=== PATIENT | male | born 1945 | race Caucasian/White ===

== ENCOUNTER 2018-07-19 18:27 | Inpatient (IN) | payer MEDICARE, SELFPAY ==
[~2018-07-19] VITALS: Ht 182.9 cm; Wt 120.4 kg
--- NOTE | 2018-07-19 18:52 | PHYS DOC ---
Past Medical History Smoking: Cigarettes Adult General Chief Complaint Chief Complaint: RAPID HEART RATE HPI HPI Patient is a 72 year old male who presents to do due to chief complaint of fast heart rate. Patient states that he felt his heart rate increased since this morning. Patient states that last month he was in [facility] for COPD exacerbation and was told that he was having atrial fibrillation. He states that his heart rate spontaneously lumbricus normal sinus rhythm answers discharged home. Patient states that he moved from [place] last December and does not have a local PCP. Patient is admitted to being an active smoker. Patient states that he takes metoprolol in the semiprone and aspirin. He does not take any anticoagulation. Currently patient denies fever, chills, nausea, vomiting, diarrhea, dysuria, shyness of breath. Patient does complain of mild chest pain. Review of Systems Review of Systems Constitutional: Denies fever or chills [] Eyes: Denies change in visual acuity, redness, or eye pain [] HENT: Denies nasal congestion or sore throat [] Respiratory: Denies cough or shortness of breath [] Cardiovascular: Patient complains of fast heart rate GI: Denies abdominal pain, nausea, vomiting, bloody stools or diarrhea [] : Denies dysuria or hematuria [] Musculoskeletal: Denies back pain or joint pain [] Integument: Denies rash or skin lesions [] Neurologic: Denies headache, focal weakness or sensory changes [] Endocrine: Denies polyuria or polydipsia [] All other systems were reviewed and found to be within normal limits, except as documented in this note. Current Medications Current Medications Current Medications Medications (Trade) Dose Ordered Sig/Lauren Start Time Stop Time Status Last Admin Dose Admin Diltiazem HCl (Cardizem Iv Push) 10 mg 1X ONCE 07/19/18 19:00 07/19/18 19:03 DC 07/19/18 19:10 10 MG Sodium Chloride 1,000 ml @ 1,000 mls/hr 1X ONCE 07/19/18 19:00 07/19/18 19:59 DC 07/19/18 19:04 1,000 MLS/HR Allergies Allergies Physical Exam Physical Exam Constitutional: Well developed, well nourished, no acute distress, non-toxic appearance. HENT: Normocephalic, atraumatic, normocaphalic Eyes: PERRL, EOMI Neck: Normal range of motion, no tenderness, supple Cardiovascular: Irregularly irregular rhythm consistent with atrial fibrillation with RVR Resp: Bilateral breath sounds clear to auscultation Abdomen: Soft, no tenderness, no distension Skin: Warm, dry, no erythema, no rash. Back: No tenderness, no CVA tenderness. Extremities: No tenderness, ROM intact, no edema. Neurologic: Alert and oriented X 3, normal motor function, normal sensory function, no focal deficits noted. Psychologic: Affect normal, judgement normal, mood normal. Current Patient Data Vital Signs Vital Signs Date Time Temp Pulse Resp B/P (MAP) Pulse Ox O2 Delivery O2 Flow Rate FiO2 07/19/18 20:08 118 22 101/54 (70) 93 Room Air 07/19/18 18:27 97.8 97.8 Lab Values Laboratory Tests Test 07/19/18 18:43 White Blood Count 9.0 x10^3/uL (4.0-11.0) Red Blood Count 4.55 x10^6/uL (4.30-5.70) Hemoglobin 14.0 g/dL (13.0-17.5) Hematocrit 41.5 % (39.0-53.0) Mean Corpuscular Volume 91 fL (79-100) Mean Corpuscular Hemoglobin 31 pg (25-35) Mean Corpuscular Hemoglobin Concent 34 g/dL (31-37) Red Cell Distribution Width 14.3 % (11.5-14.5) Platelet Count 258 x10^3/uL (140-400) Neutrophils (%) (Auto) 74 % (31-73) H Lymphocytes (%) (Auto) 14 % (24-48) L Monocytes (%) (Auto) 8 % (0-9) Eosinophils (%) (Auto) 3 % (0-3) Basophils (%) (Auto) 1 % (0-3) Neutrophils # (Auto) 6.7 x10^3uL (1.8-7.7) Lymphocytes # (Auto) 1.2 x10^3/uL (1.0-4.8) Monocytes # (Auto) 0.7 x10^3/uL (0.0-1.1) Eosinophils # (Auto) 0.3 x10^3/uL (0.0-0.7) Basophils # (Auto) 0.1 x10^3/uL (0.0-0.2) Prothrombin Time 13.6 SEC (11.7-14.0) Prothrombin Time INR 1.1 (0.8-1.1) Sodium Level 137 mmol/L (136-145) Potassium Level 4.3 mmol/L (3.5-5.1) Chloride Level 102 mmol/L (98-107) Carbon Dioxide Level 26 mmol/L (21-32) Anion Gap 9 (6-14) Blood Urea Nitrogen 14 mg/dL (8-26) Creatinine 1.4 mg/dL (0.7-1.3) H Estimated GFR (Cockcroft-Gault) 49.5 BUN/Creatinine Ratio 10 (6-20) Glucose Level 115 mg/dL (70-99) H Calcium Level 9.4 mg/dL (8.5-10.1) Total Bilirubin 0.7 mg/dL (0.2-1.0) Aspartate Amino Transferase (AST) 14 U/L (15-37) L Alanine Aminotransferase (ALT) 17 U/L (16-63) Alkaline Phosphatase 81 U/L (46-116) Troponin I Quantitative < 0.017 ng/mL (0.000-0.055) LP-Jqd-A-Type Natriuretic Peptide 559 pg/mL (0-124) H Total Protein 6.8 g/dL (6.4-8.2) Albumin 3.8 g/dL (3.4-5.0) Albumin/Globulin Ratio 1.3 (1.0-1.7) Thyroid Stimulating Hormone (TSH) 0.822 uIU/mL (0.358-3.74) Laboratory Tests 07/19/18 18:43 Laboratory Tests 07/19/18 18:43 EKG EKG EKG interpretation: HR: 123 Atrial fibrillation with RVR Irregular intervals Normal axis Non Specific ST changes Repeat EKG interpretation: HR: 96 Atrial Fibrillation Irregular Intervals Normal axis Non specific ST changes Radiology/Procedures Radiology/Procedures CHEST AP ONLY History: rapid heart rate. Pacemaker identified. No prior study for comparison. Postsurgical changes. No pneumothorax, large effusion or dense airspace consolidation. Mild atelectasis in both lungs, primarily lung bases. IMPRESSION: No consolidating infiltrate. Mild atelectasis. Electronically signed by: Chris Mac MD (07/19/2018 7:13 PM) [facility] Course & Med Decision Making Course & Med Decision Making Pertinent Labs and Imaging studies reviewed. (See chart for details) On presentation patient's EKG shows that he is in A. fib with RVR. Ordered labs, chest x-ray, EKG, Cardizem bolus Labs are within normal limits. Troponin is negative. Chest x-ray shows no acute disease. After 10 mg IV bolus of Cardizem patient's heart rate is low 100s to high 90s. As this is new onset A. fib with RVR patient will need to be admitted for further evaluation and treatment. I discussed results and plan of care patient. Patient hospitalist for admission. His [place] patient presentation, tests ordered, results, plan of care with Dr. Quiroga who accepts admission. Hospitalist will order anti-coagulation medications. Dragon Disclaimer Dragon Disclaimer This electronic medical record was generated, in whole or in part, using a voice recognition dictation system. ILSA BANKS DO July 19, 2018 18:52
[2018-07-19 19:00] LABS: BASO # 0.1 x10^3/uL (0.0-0.2); BASO % 1 % (0-3); EOS # 0.3 x10^3/uL (0.0-0.7); EOS % 3 % (0-3); HEMATOCRIT 41.5 % (39.0-53.0); LYMPH # 1.2 x10^3/uL (1.0-4.8); LYMPH % 14 % (24-48); MEAN CORPUSCULAR HEMOGLOBIN 31 pg (25-35); MEAN CORPUSCULAR HGB CONC 34 g/dL (31-37); MEAN CORPUSCULAR VOLUME 91 fL (79-100); MONO # 0.7 x10^3/uL (0.0-1.1); MONO % 8 % (0-9); NEUT # 6.7 x10^3uL (1.8-7.7); NEUT % 74 % (31-73); PLATELET COUNT 258 x10^3/uL (140-400); RED BLOOD COUNT 4.55 x10^6/uL (4.30-5.70); RED CELL DISTRIBUTION WIDTH 14.3 % (11.5-14.5)
[2018-07-19] MEDS ORDERED: IV NORMAL SALINE 1000ML BAG 1,000 ML IV ONE (19:00)
[2018-07-19] MEDS ORDERED: dilTIAZem IV PUSH 25 MG/5 ML VIAL IVP ONE (19:00)
[2018-07-19 19:11] LABS: CALCIUM 9.4 mg/dL (8.5-10.1); CREATININE 1.4 mg/dL (0.7-1.3); GFR 49.5; POTASSIUM 4.3 mmol/L (3.5-5.1)
--- NOTE | 2018-07-19 19:15 | RAD ---
CHEST AP ONLY History: rapid heart rate. Pacemaker identified. No prior study for comparison. Postsurgical changes. No pneumothorax, large effusion or dense airspace consolidation. Mild atelectasis in both lungs, primarily lung bases. IMPRESSION: No consolidating infiltrate. Mild atelectasis. Electronically signed by: Chris Mac MD (07/19/2018 7:13 PM) [facility]
[2018-07-19 19:17] LABS: ALBUMIN 3.8 g/dL (3.4-5.0); ALBUMIN/GLOBULIN RATIO 1.3 (1.0-1.7); TOTAL BILIRUBIN 0.7 mg/dL (0.2-1.0); TOTAL PROTEIN 6.8 g/dL (6.4-8.2)
[2018-07-19 19:29] LABS: PROTHROMBIN TIME PATIENT 13.6 SEC (11.7-14.0)
[2018-07-19] MEDS ORDERED: HYDROcodone/APAP 5/325MG 1 TAB TABLET PO PRN (21:45)
[2018-07-19] MEDS ORDERED: LACTULOSE 20 GM/30 ML SOLUTION. PO PRN (21:45)
[2018-07-19] MEDS ORDERED: ACETAMINOPHEN 325 MG TABLET. PO PRN (21:45)
[2018-07-19] MEDS ORDERED: ONDANSETRON PF 4 MG/2 ML VIAL. IV PRN (21:45)
--- NOTE | 2018-07-19 21:50 | NUR ---
PT ARRIVED FROM ED VIA STRETCHER IN STABLE CONDITION. PT PLACED ON TELEMETRY. ORIENTED TO UNIT. ADMIT ORDERS TO BE ACKNOWLEDGED. ALLOWED FOR QUESTIONS FROM PT.
[2018-07-19] MEDS ORDERED: IV NORMAL SALINE 1000ML BAG 1,000 ML IV SCH (22:00)
[2018-07-19 22:05] VITALS: BP 106/70
[2018-07-19] MEDS ORDERED: METO25TA4 PO (22:20)
[2018-07-19] MEDS ORDERED: LISI10TA2 PO (22:21)
[2018-07-19] MEDS ORDERED: ASPI-630 PO (22:23)
[2018-07-19 23:00] VITALS: BP 98/62
[2018-07-19] MEDS ORDERED: WARFARIN 3 MG TABLET. PO SCH (23:00)
--- NOTE | 2018-07-19 23:18 | PDOC1 ---
History and Physical Date of Admission Date of Admission DATE: 07/19/18 TIME: 23:00 Identification/Chief Complaint Chief Complaint Palpitations Source Source: Chart review, Patient History of Present Illness History of Present Illness Mr Costa ([facility]) is a 72yo M w/ PMHx HTN, COPD, smoker, AVR, PPM ([employer]), paroxysmal afib who p/w fast heart rate noted at home. Patient states that he felt his heart rate increased since this morning. Patient states that last month he was in [facility] for COPD exacerbation and was told that he was having atrial fibrillation. Patient states that he moved from [place] last December after [facility] and does not have a local PCP. He was noted to have atrial fibrillation previously when noted with aortic stenosis and was treated with coumadin and metoprolol, however, he has transitioned to aspirin on his own and no longer taker any anticoagulation. Currently patient denies fever, chills, nausea, vomiting, diarrhea, dysuria, shortness of breath. Patient does complain of mild chest pain. He did recently have a COPD exacerbation and feels this set him off. He was 180bpm in EMS and in the 130s in ED, was initially responsive to 10mg cardizem bolus with correction to 90bpm, still in afib. Admitted to [facility] for further care Past Medical History Cardiovascular: AFIB, HTN Pulmonary: COPD GI: No pertinent hx Heme/Onc: No pertinent hx Hepatobiliary: No pertinent hx Psych: No pertinent hx Rheumatologic: No pertinent hx Infectious disease: No pertinent hx ENT: No pertinent hx Renal/: No pertinent hx Endocrine: No pertinent hx Dermatology: No pertinent hx Past Surgical History Past Surgical History: Pacemaker, Other (AVR) Family History Family History: High Cholestrol, Hypertension Social History Smoke: 1 pack per day ALCOHOL: rare Drugs: None Current Medications Current Medications Current Medications Sodium Chloride 1,000 ml @ 1,000 mls/hr 1X ONCE IV Last administered on 07/19/18at 19:04; Start 07/19/18 at 19:00; Stop 07/19/18 at 19:59; Status DC Diltiazem HCl (Cardizem Iv Push) 10 mg 1X ONCE IVP Last administered on 07/19/18at 19:10; Start 07/19/18 at 19:00; Stop 07/19/18 at 19:03; Status DC Sodium Chloride 1,000 ml @ 100 mls/hr Q10H IV ; Start 07/19/18 at 22:00; Stop 07/20/18 at 07:59 Ondansetron HCl (Zofran) 4 mg PRN Q6HRS PRN IV NAUSEA/VOMITING; Start 07/19/18 at 21:45 Acetaminophen/ Hydrocodone Bitart (Lortab 5/325) 1 tab PRN Q4HRS PRN PO MILD PAIN; Start 07/19/18 at 21:45 Acetaminophen (Tylenol) 650 mg PRN Q6HRS PRN PO Headaches, Temp > 101.5F; Start 07/19/18 at 21:45 Senna/Docusate Sodium (Senna Plus) 1 tab BID PO ; Start 07/19/18 at 22:00 Lactulose (Lactulose) 20 gm PRN Q12HR PRN PO CONSTIPATION; Start 07/19/18 at 21:45 Heparin Sodium/ Dextrose 500 ml @ 0 mls/hr CONT PRN IV SEE I/O RECORD; Start 07/19/18 at 22:00 Metoprolol Tartrate (Lopressor) 25 mg BID PO ; Start 07/19/18 at 22:00 Diltiazem HCl (Cardizem) 30 mg Q8HRS PO ; Start 07/19/18 at 22:00 Active Scripts Active Reported Aspirin 81 Mg Tab.chew 1 Tab PO DAILY Lisinopril 10 Mg Tablet 10 Mg PO DAILY Metoprolol Tartrate 25 Mg Tablet 25 Mg PO BID Allergies Allergies: Coded Allergies: No Known Drug Allergies (Unverified , 07/19/18) ROS General: YES: Fatigue, Malaise; No: Chills, Night Sweats, Appetite, Other PSYCHOLOGICAL ROS: No: Anxiety, Behavioral Disorder, Concentration difficultie, Decreased libido, Depression, Disorientation, Hallucinations, Hostility, Irri tablity, Memory difficulties, Mood Swings, Obsessive thoughts, Physical abuse, Sexual abuse, Sleep disturbances, Suicidal ideation, Other Eyes: No Blurry vision, No Decreased vision, No Double vision, No Dry eyes, No Excessive tearing, No Eye Pain, No Itchy Eyes, No Loss of vision, No Photophobia, No Scotomata, No Uses contacts, No Uses glasses, No Other HEENT: No: Heacaches, Visual Changes, Hearing change, Nasal congestion, Nasal discharge, Oral lesions, Sinus pain, Sore Throat, Epistaxis, Sneezing, Snoring, Tinnitus, Vertigo, Vocal changes, Other ALLERGY AND IMMUNOLOGY: No: Hives, Insect Bite Sensitivity, Itchy/Watery Eyes, Nasal Congestion, Post Nasal Drip, Seasonal Allergies, Other Hematological and Lymphatic: No: Bleeding Problems, Blood Clots, Blood Transfusions, Brusing, Night Sweats, Pallor, Swollen Lymph Nodes, Other ENDOCRINE: No: Breast Changes, Galactorrhea, Hair Pattern Changes, Hot Flashes, Malaise/lethargy, Mood Swings, Palpitations, Polydipsia/polyuria, Skin Changes, Temperature Intolerance, Unexpected Weight Changes, Other Breast: No New/Changing Breast Lumps, No Nipple changes, No Nipple discharge, No Other Respiratory: YES: Shortness of breath, SOB with excertion, Wheezing; No: Cough, Hemoptysis, Orthopnea, Pleuritic Pain, Sputum Changes, Stridor, Tachypnea, Other Cardiovascular: yes Chest Pain, yes Palpitations; No Orthopnea, No Paroxysmal Noc. Dyspnea, No Edema, No Lt Headedness, No Other Gastrointestinal: No Nausea, No Vomiting, No Abdominal Pain, No Diarrhea, No Constipation, No Melena, No Hematochezia, No Other Genitourinary: No Dysuria, No Frequency, No Incontinence, No Hematuria, No Retention, No Discharge, No Urgency, No Pain, No Flank Pain, No Other, No , No , No , No , No , No , No Musculoskeletal: No Gait Disturbance, No Joint Pain, No Joint Stiffness, No Joint Swelling, No Muscle Pain, No Muscular Weakness, No Pain In:, No Swelling In:, No Other Neurological: No Behavorial Changes, No Bowel/Bladder ControlChng, No Confusion, No Dizziness, No Gait Disturbance, No Headaches, No Impaired Coord/b alance, No Memory Loss, No Numbness/Tingling, No Seizures, No Speech Problems, No Tremors, No Visual Changes, No Weakness, No Other Skin: No Dry Skin, No Eczema, No Hair Changes, No Lumps, No Mole Changes, No Mottling, No Nail Changes, No Pruritus, No Rash, No Skin Lesion Changes, No Other, No Acne Physical Exam General: Alert, Oriented X3, Cooperative, No acute distress HEENT: Atraumatic, PERRLA, EOMI, Mucous membr. moist/pink Lungs: Other (Slight scattered wheezing) Heart: S1S2, irregularly irregular Abdomen: Normal bowel sounds, Soft, No tenderness, No hepatosplenomegaly, No masses Extremities: No clubbing, No cyanosis, No edema, Normal pulses, No tenderness/swelling Skin: No rashes, No breakdown, No significant lesion Neuro: Normal gait, Normal speech, Strength at 5/5 X4 ext, Normal tone, Sensation intact, Cranial nerves 3-12 NL, Reflexes 2+ Psych/Mental Status: Mental status NL, Mood NL Vitals Vitals Vital Signs Date Time Temp Pulse Resp B/P (MAP) Pulse Ox O2 Delivery O2 Flow Rate FiO2 07/19/18 21:38 92 18 108/51 (70) 95 Room Air 07/19/18 18:27 97.8 97.8 Labs Labs Laboratory Tests Test 07/19/18 18:43 White Blood Count 9.0 x10^3/uL (4.0-11.0) Red Blood Count 4.55 x10^6/uL (4.30-5.70) Hemoglobin 14.0 g/dL (13.0-17.5) Hematocrit 41.5 % (39.0-53.0) Mean Corpuscular Volume 91 fL (79-100) Mean Corpuscular Hemoglobin 31 pg (25-35) Mean Corpuscular Hemoglobin Concent 34 g/dL (31-37) Red Cell Distribution Width 14.3 % (11.5-14.5) Platelet Count 258 x10^3/uL (140-400) Neutrophils (%) (Auto) 74 % (31-73) Lymphocytes (%) (Auto) 14 % (24-48) Monocytes (%) (Auto) 8 % (0-9) Eosinophils (%) (Auto) 3 % (0-3) Basophils (%) (Auto) 1 % (0-3) Neutrophils # (Auto) 6.7 x10^3uL (1.8-7.7) Lymphocytes # (Auto) 1.2 x10^3/uL (1.0-4.8) Monocytes # (Auto) 0.7 x10^3/uL (0.0-1.1) Eosinophils # (Auto) 0.3 x10^3/uL (0.0-0.7) Basophils # (Auto) 0.1 x10^3/uL (0.0-0.2) Prothrombin Time 13.6 SEC (11.7-14.0) Prothromb Time International Ratio 1.1 (0.8-1.1) Sodium Level 137 mmol/L (136-145) Potassium Level 4.3 mmol/L (3.5-5.1) Chloride Level 102 mmol/L (98-107) Carbon Dioxide Level 26 mmol/L (21-32) Anion Gap 9 (6-14) Blood Urea Nitrogen 14 mg/dL (8-26) Creatinine 1.4 mg/dL (0.7-1.3) Estimated GFR (Cockcroft-Gault) 49.5 BUN/Creatinine Ratio 10 (6-20) Glucose Level 115 mg/dL (70-99) Calcium Level 9.4 mg/dL (8.5-10.1) Total Bilirubin 0.7 mg/dL (0.2-1.0) Aspartate Amino Transf (AST/SGOT) 14 U/L (15-37) Alanine Aminotransferase (ALT/SGPT) 17 U/L (16-63) Alkaline Phosphatase 81 U/L (46-116) Troponin I Quantitative < 0.017 ng/mL (0.000-0.055) OS-Mde-R-Type Natriuretic Peptide 559 pg/mL (0-124) Total Protein 6.8 g/dL (6.4-8.2) Albumin 3.8 g/dL (3.4-5.0) Albumin/Globulin Ratio 1.3 (1.0-1.7) Thyroid Stimulating Hormone (TSH) 0.822 uIU/mL (0.358-3.74) Laboratory Tests Test 07/19/18 18:43 White Blood Count 9.0 x10^3/uL (4.0-11.0) Red Blood Count 4.55 x10^6/uL (4.30-5.70) Hemoglobin 14.0 g/dL (13.0-17.5) Hematocrit 41.5 % (39.0-53.0) Mean Corpuscular Volume 91 fL (79-100) Mean Corpuscular Hemoglobin 31 pg (25-35) Mean Corpuscular Hemoglobin Concent 34 g/dL (31-37) Red Cell Distribution Width 14.3 % (11.5-14.5) Platelet Count 258 x10^3/uL (140-400) Neutrophils (%) (Auto) 74 % (31-73) Lymphocytes (%) (Auto) 14 % (24-48) Monocytes (%) (Auto) 8 % (0-9) Eosinophils (%) (Auto) 3 % (0-3) Basophils (%) (Auto) 1 % (0-3) Neutrophils # (Auto) 6.7 x10^3uL (1.8-7.7) Lymphocytes # (Auto) 1.2 x10^3/uL (1.0-4.8) Monocytes # (Auto) 0.7 x10^3/uL (0.0-1.1) Eosinophils # (Auto) 0.3 x10^3/uL (0.0-0.7) Basophils # (Auto) 0.1 x10^3/uL (0.0-0.2) Prothrombin Time 13.6 SEC (11.7-14.0) Prothromb Time International Ratio 1.1 (0.8-1.1) Sodium Level 137 mmol/L (136-145) Potassium Level 4.3 mmol/L (3.5-5.1) Chloride Level 102 mmol/L (98-107) Carbon Dioxide Level 26 mmol/L (21-32) Anion Gap 9 (6-14) Blood Urea Nitrogen 14 mg/dL (8-26) Creatinine 1.4 mg/dL (0.7-1.3) Estimated GFR (Cockcroft-Gault) 49.5 BUN/Creatinine Ratio 10 (6-20) Glucose Level 115 mg/dL (70-99) Calcium Level 9.4 mg/dL (8.5-10.1) Total Bilirubin 0.7 mg/dL (0.2-1.0) Aspartate Amino Transf (AST/SGOT) 14 U/L (15-37) Alanine Aminotransferase (ALT/SGPT) 17 U/L (16-63) Alkaline Phosphatase 81 U/L (46-116) Troponin I Quantitative < 0.017 ng/mL (0.000-0.055) BG-Qir-H-Type Natriuretic Peptide 559 pg/mL (0-124) Total Protein 6.8 g/dL (6.4-8.2) Albumin 3.8 g/dL (3.4-5.0) Albumin/Globulin Ratio 1.3 (1.0-1.7) Thyroid Stimulating Hormone (TSH) 0.822 uIU/mL (0.358-3.74) Images Images CXR - Pacemaker identified. No prior study for comparison. Postsurgical changes.No pneumothorax, large effusion or dense airspace consolidation. Mild atelectasis in both lungs, primarily lung bases. VTE Prophylaxis Ordered VTE Prophylaxis Devices: No VTE Pharmacological Prophylaxi: Yes Assessment/Plan Assessment/Plan A/P: Atrial fibrillation with rapid ventricular response - was responsive to 1x IV diltiazem dosing, now a little low BP, will try metoprolol 25mg BID and add cardizem if his BP tolerates it in the morning. Heparin GTT for elevated [id number], will bridge back to coumadin for valvular afib. Consult cardiology HTN - cont lisinopril, BB COPD - prn albuterol Smoker - counseled on cessation AMELIA - will monitor, give some gentle IVF S/p AVR - bioprosthetic. Stable PPM ([employer]) - is 12 years old no history of generator change or battery check Paroxysmal afib - historically is valvular, noted when he was in [facility]. As above, he had continued metoprolol and changed to ASA from coumadin. Will consult cardiology and anticoagulate for high risk for CVA FEN - Cardiac diet PPX - heparin and coumadin FULL CODE Dispo - admit to [facility] for afib with RVR at least 2 midnights RONDA ALVES MD July 19, 2018 23:18
[2018-07-19] MEDS: dilTIAZem HCL 30 MG TABLET PO SCH (23:25)
[2018-07-19] MEDS: SENNOSIDES/DOCUSATE 8.6/50MG TABLET. PO SCH (23:25)
[2018-07-19] MEDS: METOPROLOL TART IMMED RELEASE 25 MG TABLET. PO SCH (23:25)
[2018-07-19] MEDS: HEPARIN 25,000UTS/500ML PREMIX 500 ML IV PRN (23:35)
[2018-07-20] VITALS (11 sets, daily range): BP systolic 98–126; BP diastolic 53–78
[2018-07-20] MEDS: dilTIAZem HCL 30 MG TABLET PO SCH ×2 (06:19→20:58)
[2018-07-20 06:33] LABS: BASO # 0.1 x10^3/uL (0.0-0.2); BASO % 1 % (0-3); EOS # 0.5 x10^3/uL (0.0-0.7); EOS % 9 % (0-3); HEMATOCRIT 38.2 % (39.0-53.0); HEMOGLOBIN 12.6 g/dL (13.0-17.5); LYMPH # 1.5 x10^3/uL (1.0-4.8); LYMPH % 23 % (24-48); MEAN CORPUSCULAR HEMOGLOBIN 31 pg (25-35); MEAN CORPUSCULAR HGB CONC 33 g/dL (31-37); MEAN CORPUSCULAR VOLUME 93 fL (79-100); MONO # 0.7 x10^3/uL (0.0-1.1); MONO % 11 % (0-9); NEUT # 3.6 x10^3uL (1.8-7.7); NEUT % 56 % (31-73); PLATELET COUNT 205 x10^3/uL (140-400); RED BLOOD COUNT 4.14 x10^6/uL (4.30-5.70); RED CELL DISTRIBUTION WIDTH 13.9 % (11.5-14.5); WHITE BLOOD COUNT 6.3 x10^3/uL (4.0-11.0)
--- NOTE | 2018-07-20 06:54 | EKG ---
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 INCOMPLETE RIGHT BUNDLE BRANCH BLOCK QRS(T) CONTOUR ABNORMALITY CONSIDER ANTEROLATERAL MYOCARDIAL DAMAGE T ABNORMALITY IN INFERIOR LEADS Electronically Signed On 07-21-2018 10:01:03 CDT by Alec Aguirre
--- NOTE | 2018-07-20 06:57 | EKG ---
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
[2018-07-20] MEDS: HEPARIN 25,000UTS/500ML PREMIX 500 ML IV PRN ×2 (07:08→14:48)
[2018-07-20] MEDS: SENNOSIDES/DOCUSATE 8.6/50MG TABLET. PO SCH ×2 (07:44→20:58)
[2018-07-20] MEDS: METOPROLOL TART IMMED RELEASE 25 MG TABLET. PO SCH ×2 (07:44→20:59)
[2018-07-20] MEDS: ALBUTEROL SULFATE 2.5 MG/3 ML NEBU. NEB SCH ×3 (07:47→21:50)
[2018-07-20 08:46] LABS: CALCIUM 8.8 mg/dL (8.5-10.1); POTASSIUM 4.6 mmol/L (3.5-5.1)
[2018-07-20 08:58] LABS: CHOLESTEROL/HDL RATIO 3.6
[2018-07-20] MEDS ORDERED: LISINOPRIL 10 MG TABLET PO SCH (09:00)
--- NOTE | 2018-07-20 11:30 | PDOC2 ---
CARMEN DIAZ HEALTH INFORMATION TECHNICIAN 07/20/18 1130: CARDIAC CONSULT DATE OF CONSULT Date of Consult DATE: 07/20/18 TIME: 0910 REASON FOR CONSULT Reason for Consult: AFIB REFERRING PHYSICIAN Referring Physician: José Miguel SOURCE Source: Chart review, Patient HISTORY OF PRESENT ILLNESS HISTORY OF PRESENT ILLNESS This is a pleasant 72 yo male admitted for complains of fast heart rate. He was not feeling good yesterday and feeling out of sorts. He checked his heart rate and it was fast. He then went to his scheduled counseling but again not feeling well. He felt palpitations, dizzy and SOA. He was then convinced by his friend to go to the hospital. Initially he told the EMS to go to [facility] since he was there before but was told he may need further workup hence to [facility]. His HR is better controlled right now and on AFIB. This is not new and according to his admission last month at [facility] he was on AFIB as chronic noted with his PPM. He had AVR bioprosthetic which was noted to be stable about a month ago sh[place]ley he was [place]. He is compliant with his medications and eliquis was prescribed before but could not afford with his limited means and currently resides at a [facility] and the only relative he has close is his daughter who is in [place]. He has been taking ASA for stroke prevention. No recent fever chills, falls or passing out. Denies any relapse on alcoholism and tobacco use. PAST MEDICAL HISTORY Cardiovascular: AFIB, HTN, Hyperlipidemia Pulmonary: COPD, Pneumonia CENTRAL NERVOUS SYSTEM: Other (No pertinent history) GI: No pertinent hx Heme/Onc: Cancer (prostate) Hepatobiliary: No pertinent hx Psych: No pertinent hx Musculoskeletal: Osteoarthritis Rheumatologic: No pertinent hx Infectious disease: No pertinent hx ENT: No pertinent hx Renal/: Prostate Ca. (treated with radiation) Endocrine: No pertinent hx Dermatology: No pertinent hx PAST SURGICAL HISTORY Past Surgical History: Pacemaker ([employer]), Other (AVR- bioprothetic) FAMILY HISTORY Family History: Adopted SOCIAL HISTORY Smoke: No ALCOHOL: none Drugs: None Lives: Alone ([facility]) CURRENT MEDICATIONS CURRENT MEDICATIONS Current Medications Medications (Trade) Dose Ordered Sig/Lauren Route PRN Reason Start Time Stop Time Status Last Admin Dose Admin Sodium Chloride 1,000 ml @ 1,000 mls/hr 1X ONCE IV 07/19/18 19:00 07/19/18 19:59 DC 07/19/18 19:04 Diltiazem HCl (Cardizem Iv Push) 10 mg 1X ONCE IVP 07/19/18 19:00 07/19/18 19:03 DC 07/19/18 19:10 Sodium Chloride 1,000 ml @ 100 mls/hr Q10H IV 07/19/18 22:00 07/20/18 07:59 DC 07/19/18 23:26 Senna/Docusate Sodium (Senna Plus) 1 tab BID PO 07/19/18 22:00 07/20/18 07:44 Heparin Sodium/ Dextrose 500 ml @ 0 mls/hr CONT PRN IV SEE I/O RECORD 07/19/18 22:00 07/19/18 23:35 Metoprolol Tartrate (Lopressor) 25 mg BID PO 07/19/18 22:00 07/20/18 07:44 Diltiazem HCl (Cardizem) 30 mg Q8HRS PO 07/19/18 22:00 07/20/18 06:19 Warfarin Sodium (Coumadin) 6 mg DAILY PO 07/19/18 23:00 07/20/18 07:37 DC 07/19/18 23:25 Lisinopril (Prinivil) 10 mg DAILY PO 07/20/18 09:00 07/20/18 07:44 Albuterol Sulfate (Ventolin Neb Soln) 2.5 mg RTQID NEB 07/20/18 08:00 07/20/18 07:47 ALLERGIES ALLERGIES: Coded Allergies: No Known Drug Allergies (Unverified , 07/19/18) ROS Review of System 14 po9int ROS evaluated with pertinent positives noted per HPI PHYSICAL EXAM General: Alert, Oriented X3, Cooperative, No acute distress Heart: Other (AFIB; 2/6 systolic murmur to ELIAS border) Abdomen: Soft, No tenderness Extremities: No cyanosis, No edema Skin: No breakdown, No significant lesion Neuro: Normal speech, Sensation intact Psych/Mental Status: Mental status NL, Mood NL MUSCULOSKELETAL: Osteoarthritic changes both hands VITALS VITALS Vital Signs Date Time Temp Pulse Resp B/P (MAP) Pulse Ox O2 Delivery O2 Flow Rate FiO2 07/20/18 10:44 98.0 80 19 105/55 (72) 98 Room Air 98.0 LABS Lab: Laboratory Tests Test 07/19/18 18:43 07/20/18 05:35 White Blood Count 9.0 x10^3/uL (4.0-11.0) 6.3 x10^3/uL (4.0-11.0) Red Blood Count 4.55 x10^6/uL (4.30-5.70) 4.14 x10^6/uL (4.30-5.70) Hemoglobin 14.0 g/dL (13.0-17.5) 12.6 g/dL (13.0-17.5) Hematocrit 41.5 % (39.0-53.0) 38.2 % (39.0-53.0) Mean Corpuscular Volume 91 fL (79-100) 93 fL (79-100) Mean Corpuscular Hemoglobin 31 pg (25-35) 31 pg (25-35) Mean Corpuscular Hemoglobin Concent 34 g/dL (31-37) 33 g/dL (31-37) Red Cell Distribution Width 14.3 % (11.5-14.5) 13.9 % (11.5-14.5) Platelet Count 258 x10^3/uL (140-400) 205 x10^3/uL (140-400) Neutrophils (%) (Auto) 74 % (31-73) 56 % (31-73) Lymphocytes (%) (Auto) 14 % (24-48) 23 % (24-48) Monocytes (%) (Auto) 8 % (0-9) 11 % (0-9) Eosinophils (%) (Auto) 3 % (0-3) 9 % (0-3) Basophils (%) (Auto) 1 % (0-3) 1 % (0-3) Neutrophils # (Auto) 6.7 x10^3uL (1.8-7.7) 3.6 x10^3uL (1.8-7.7) Lymphocytes # (Auto) 1.2 x10^3/uL (1.0-4.8) 1.5 x10^3/uL (1.0-4.8) Monocytes # (Auto) 0.7 x10^3/uL (0.0-1.1) 0.7 x10^3/uL (0.0-1.1) Eosinophils # (Auto) 0.3 x10^3/uL (0.0-0.7) 0.5 x10^3/uL (0.0-0.7) Basophils # (Auto) 0.1 x10^3/uL (0.0-0.2) 0.1 x10^3/uL (0.0-0.2) Prothrombin Time 13.6 SEC (11.7-14.0) Prothromb Time International Ratio 1.1 (0.8-1.1) Sodium Level 137 mmol/L (136-145) 140 mmol/L (136-145) Potassium Level 4.3 mmol/L (3.5-5.1) 4.6 mmol/L (3.5-5.1) Chloride Level 102 mmol/L (98-107) 104 mmol/L (98-107) Carbon Dioxide Level 26 mmol/L (21-32) 29 mmol/L (21-32) Anion Gap 9 (6-14) 7 (6-14) Blood Urea Nitrogen 14 mg/dL (8-26) 13 mg/dL (8-26) Creatinine 1.4 mg/dL (0.7-1.3) 1.0 mg/dL (0.7-1.3) Estimated GFR (Cockcroft-Gault) 49.5 73.0 BUN/Creatinine Ratio 10 (6-20) Glucose Level 115 mg/dL (70-99) 92 mg/dL (70-99) Calcium Level 9.4 mg/dL (8.5-10.1) 8.8 mg/dL (8.5-10.1) Total Bilirubin 0.7 mg/dL (0.2-1.0) Aspartate Amino Transf (AST/SGOT) 14 U/L (15-37) Alanine Aminotransferase (ALT/SGPT) 17 U/L (16-63) Alkaline Phosphatase 81 U/L (46-116) Troponin I Quantitative < 0.017 ng/mL (0.000-0.055) NO-Mna-A-Type Natriuretic Peptide 559 pg/mL (0-124) Total Protein 6.8 g/dL (6.4-8.2) Albumin 3.8 g/dL (3.4-5.0) Albumin/Globulin Ratio 1.3 (1.0-1.7) Thyroid Stimulating Hormone (TSH) 0.822 uIU/mL (0.358-3.74) Heparin Anti-Xa Act, Unfractionated 0.18 IU/mL (0.30-0.70) Magnesium Level 1.9 mg/dL (1.8-2.4) Triglycerides Level 83 mg/dL (0-150) Cholesterol Level 166 mg/dL (0-200) LDL Cholesterol, Calculated 103 mg/dL (0-100) VLDL Cholesterol, Calculated 17 mg/dL (0-40) Non-HDL Cholesterol Calculated 120 mg/dL (0-129) HDL Cholesterol 46 mg/dL (40-60) Cholesterol/HDL Ratio 3.6 ECHOCARDIOGRAM ECHOCARDIOGRAM <Conclusion> The left ventricular systolic function is normal and the ejection fraction is within normal range. The Ejection Fraction is >55%. There is normal LV segmental wall motion. There is a pacemaker lead in the right ventricle. Calculated aortic valve area is 2.4 cm2 with maximum pressure gradient of 23 mmHg and mean pressure gradient of 15 mmHg. No significant stenosis. Presumed bioprosthetic valve by history DATE: 06/02/181725 ASSESSMENT/PLAN ASSESSMENT/PLAN 1. AFIB RVR: rate now better controlled with addition of cardizem 2. HTN: controlled at low end 3. PPM in situ: [employer]. AFIB with intermittent V pacing. 4. COPD: stable 5. hx of open bioprosthetic AVR in 2009 6. Homelessness: lives in [facility] house Recommendations 1. Will need outpt stress test. 2. Continue with home toprol may need to DC or lower lisinopril to accommodate addition of cardizem pending BP trend 3. Interrogate device and note NINOSKA and AFIB burden. 4. Pt could not afford eliquis and has agreed on coumadin. Will reeval as an outpt after sufficient OAC for possible CVN 5. Follow up in office in 4 weeks. KIMBERLY DORANTES MD 07/20/182011: CARDIAC CONSULT ASSESSMENT/PLAN ASSESSMENT/PLAN Patient seen and examined. Agree with CLAM SHUCKER's assessment and plan. 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
[2018-07-20 12:39] LABS: PROTHROMBIN TIME PATIENT 13.8 SEC (11.7-14.0)
--- NOTE | 2018-07-20 13:54 | PDOC ---
PROGRESS NOTES Chief Complaint Chief Complaint A/P: Atrial fibrillation with rapid ventricular response - was responsive to 1x IV diltiazem dosing, now a little low BP, will try metoprolol 25mg BID and add cardizem if his BP tolerates it in the morning. Heparin GTT for elevated [id number], will bridge back to coumadin for afib. Consulted cardiology HTN - cont lisinopril, BB COPD - prn albuterol Smoker - counseled on cessation AMELIA - will monitor, give some gentle IVF S/p AVR - bioprosthetic. Stable PPM ([employer]) - is 12 years old no history of generator change or battery check Paroxysmal afib - historically is noted when [facility]. As above, he had continued metoprolol and changed to ASA from coumadin. Will consult cardiology and anticoagulate for high risk for CVA FEN - Cardiac diet PPX - heparin and coumadin FULL CODE Dispo - admit to [facility] for afib with RVR at least 2 midnights History of Present Illness History of Present Illness Mr Costa ([facility]) is a 72yo M w/ PMHx HTN, COPD, smoker, AVR, PPM ([employer]), paroxysmal afib who p/w fast heart rate noted at home. Patient states that he felt his heart rate increased since this morning. Patient states that last month he was in [facility] for COPD exacerbation and was told that he was having atrial fibrillation. Patient states that he moved from [place] last December after [facility] and does not have a local PCP. Lives in a correction house currently. He was noted to have atrial fibrillation previously when noted with aortic stenosis and was treated with coumadin and metoprolol, however, he has transitioned to aspirin on his own and no longer taker any anticoagulation. Currently patient denies fever, chills, nausea, vomiting, diarrhea, dysuria, shortness of breath. Patient does complain of mild chest pain. He did recently have a COPD exacerbation and feels this set him off. He was 180bpm in EMS and in the 130s in ED, was initially responsive to 10mg cardizem bolus with correction to 90bpm, still in afib. Admitted to [facility] for further care Overnight remained in slow afib. Seen by cardiology this morning. He agrees to coumadin therapy. He is still feeling short of breath, no longer feeling fluttering in his chest. Vitals Vitals Vital Signs Date Time Temp Pulse Resp B/P (MAP) Pulse Ox O2 Delivery O2 Flow Rate FiO2 07/20/18 11:28 97 Room Air 07/20/18 10:44 98.0 80 19 105/55 (72) 98.0 Physical Exam General: Alert, Oriented X3, Cooperative, No acute distress Heart: Other (AFIB; 2/6 systolic murmur to ELIAS border) Abdomen: Soft, No tenderness Extremities: No cyanosis, No edema Skin: No breakdown, No significant lesion Labs LABS Laboratory Tests Test 07/19/18 18:43 07/20/18 05:35 07/20/18 11:30 White Blood Count 9.0 x10^3/uL (4.0-11.0) 6.3 x10^3/uL (4.0-11.0) Red Blood Count 4.55 x10^6/uL (4.30-5.70) 4.14 x10^6/uL (4.30-5.70) Hemoglobin 14.0 g/dL (13.0-17.5) 12.6 g/dL (13.0-17.5) Hematocrit 41.5 % (39.0-53.0) 38.2 % (39.0-53.0) Mean Corpuscular Volume 91 fL (79-100) 93 fL (79-100) Mean Corpuscular Hemoglobin 31 pg (25-35) 31 pg (25-35) Mean Corpuscular Hemoglobin Concent 34 g/dL (31-37) 33 g/dL (31-37) Red Cell Distribution Width 14.3 % (11.5-14.5) 13.9 % (11.5-14.5) Platelet Count 258 x10^3/uL (140-400) 205 x10^3/uL (140-400) Neutrophils (%) (Auto) 74 % (31-73) 56 % (31-73) Lymphocytes (%) (Auto) 14 % (24-48) 23 % (24-48) Monocytes (%) (Auto) 8 % (0-9) 11 % (0-9) Eosinophils (%) (Auto) 3 % (0-3) 9 % (0-3) Basophils (%) (Auto) 1 % (0-3) 1 % (0-3) Neutrophils # (Auto) 6.7 x10^3uL (1.8-7.7) 3.6 x10^3uL (1.8-7.7) Lymphocytes # (Auto) 1.2 x10^3/uL (1.0-4.8) 1.5 x10^3/uL (1.0-4.8) Monocytes # (Auto) 0.7 x10^3/uL (0.0-1.1) 0.7 x10^3/uL (0.0-1.1) Eosinophils # (Auto) 0.3 x10^3/uL (0.0-0.7) 0.5 x10^3/uL (0.0-0.7) Basophils # (Auto) 0.1 x10^3/uL (0.0-0.2) 0.1 x10^3/uL (0.0-0.2) Prothrombin Time 13.6 SEC (11.7-14.0) 13.8 SEC (11.7-14.0) Prothromb Time International Ratio 1.1 (0.8-1.1) 1.1 (0.8-1.1) Sodium Level 137 mmol/L (136-145) 140 mmol/L (136-145) Potassium Level 4.3 mmol/L (3.5-5.1) 4.6 mmol/L (3.5-5.1) Chloride Level 102 mmol/L (98-107) 104 mmol/L (98-107) Carbon Dioxide Level 26 mmol/L (21-32) 29 mmol/L (21-32) Anion Gap 9 (6-14) 7 (6-14) Blood Urea Nitrogen 14 mg/dL (8-26) 13 mg/dL (8-26) Creatinine 1.4 mg/dL (0.7-1.3) 1.0 mg/dL (0.7-1.3) Estimated GFR (Cockcroft-Gault) 49.5 73.0 BUN/Creatinine Ratio 10 (6-20) Glucose Level 115 mg/dL (70-99) 92 mg/dL (70-99) Calcium Level 9.4 mg/dL (8.5-10.1) 8.8 mg/dL (8.5-10.1) Total Bilirubin 0.7 mg/dL (0.2-1.0) Aspartate Amino Transf (AST/SGOT) 14 U/L (15-37) Alanine Aminotransferase (ALT/SGPT) 17 U/L (16-63) Alkaline Phosphatase 81 U/L (46-116) Troponin I Quantitative < 0.017 ng/mL (0.000-0.055) UR-Oeh-Q-Type Natriuretic Peptide 559 pg/mL (0-124) Total Protein 6.8 g/dL (6.4-8.2) Albumin 3.8 g/dL (3.4-5.0) Albumin/Globulin Ratio 1.3 (1.0-1.7) Thyroid Stimulating Hormone (TSH) 0.822 uIU/mL (0.358-3.74) Heparin Anti-Xa Act, Unfractionated 0.18 IU/mL (0.30-0.70) 0.36 IU/mL (0.30-0.70) Magnesium Level 1.9 mg/dL (1.8-2.4) Triglycerides Level 83 mg/dL (0-150) Cholesterol Level 166 mg/dL (0-200) LDL Cholesterol, Calculated 103 mg/dL (0-100) VLDL Cholesterol, Calculated 17 mg/dL (0-40) Non-HDL Cholesterol Calculated 120 mg/dL (0-129) HDL Cholesterol 46 mg/dL (40-60) Cholesterol/HDL Ratio 3.6 Comment Review of Relevant I have reviewed the following items braydon (where applicable) has been applied. Labs Laboratory Tests Test 07/19/18 18:43 07/20/18 05:35 07/20/18 11:30 White Blood Count 9.0 x10^3/uL (4.0-11.0) 6.3 x10^3/uL (4.0-11.0) Red Blood Count 4.55 x10^6/uL (4.30-5.70) 4.14 x10^6/uL (4.30-5.70) Hemoglobin 14.0 g/dL (13.0-17.5) 12.6 g/dL (13.0-17.5) Hematocrit 41.5 % (39.0-53.0) 38.2 % (39.0-53.0) Mean Corpuscular Volume 91 fL (79-100) 93 fL (79-100) Mean Corpuscular Hemoglobin 31 pg (25-35) 31 pg (25-35) Mean Corpuscular Hemoglobin Concent 34 g/dL (31-37) 33 g/dL (31-37) Red Cell Distribution Width 14.3 % (11.5-14.5) 13.9 % (11.5-14.5) Platelet Count 258 x10^3/uL (140-400) 205 x10^3/uL (140-400) Neutrophils (%) (Auto) 74 % (31-73) 56 % (31-73) Lymphocytes (%) (Auto) 14 % (24-48) 23 % (24-48) Monocytes (%) (Auto) 8 % (0-9) 11 % (0-9) Eosinophils (%) (Auto) 3 % (0-3) 9 % (0-3) Basophils (%) (Auto) 1 % (0-3) 1 % (0-3) Neutrophils # (Auto) 6.7 x10^3uL (1.8-7.7) 3.6 x10^3uL (1.8-7.7) Lymphocytes # (Auto) 1.2 x10^3/uL (1.0-4.8) 1.5 x10^3/uL (1.0-4.8) Monocytes # (Auto) 0.7 x10^3/uL (0.0-1.1) 0.7 x10^3/uL (0.0-1.1) Eosinophils # (Auto) 0.3 x10^3/uL (0.0-0.7) 0.5 x10^3/uL (0.0-0.7) Basophils # (Auto) 0.1 x10^3/uL (0.0-0.2) 0.1 x10^3/uL (0.0-0.2) Prothrombin Time 13.6 SEC (11.7-14.0) 13.8 SEC (11.7-14.0) Prothromb Time International Ratio 1.1 (0.8-1.1) 1.1 (0.8-1.1) Sodium Level 137 mmol/L (136-145) 140 mmol/L (136-145) Potassium Level 4.3 mmol/L (3.5-5.1) 4.6 mmol/L (3.5-5.1) Chloride Level 102 mmol/L (98-107) 104 mmol/L (98-107) Carbon Dioxide Level 26 mmol/L (21-32) 29 mmol/L (21-32) Anion Gap 9 (6-14) 7 (6-14) Blood Urea Nitrogen 14 mg/dL (8-26) 13 mg/dL (8-26) Creatinine 1.4 mg/dL (0.7-1.3) 1.0 mg/dL (0.7-1.3) Estimated GFR (Cockcroft-Gault) 49.5 73.0 BUN/Creatinine Ratio 10 (6-20) Glucose Level 115 mg/dL (70-99) 92 mg/dL (70-99) Calcium Level 9.4 mg/dL (8.5-10.1) 8.8 mg/dL (8.5-10.1) Total Bilirubin 0.7 mg/dL (0.2-1.0) Aspartate Amino Transf (AST/SGOT) 14 U/L (15-37) Alanine Aminotransferase (ALT/SGPT) 17 U/L (16-63) Alkaline Phosphatase 81 U/L (46-116) Troponin I Quantitative < 0.017 ng/mL (0.000-0.055) AQ-Bkm-T-Type Natriuretic Peptide 559 pg/mL (0-124) Total Protein 6.8 g/dL (6.4-8.2) Albumin 3.8 g/dL (3.4-5.0) Albumin/Globulin Ratio 1.3 (1.0-1.7) Thyroid Stimulating Hormone (TSH) 0.822 uIU/mL (0.358-3.74) Heparin Anti-Xa Act, Unfractionated 0.18 IU/mL (0.30-0.70) 0.36 IU/mL (0.30-0.70) Magnesium Level 1.9 mg/dL (1.8-2.4) Triglycerides Level 83 mg/dL (0-150) Cholesterol Level 166 mg/dL (0-200) LDL Cholesterol, Calculated 103 mg/dL (0-100) VLDL Cholesterol, Calculated 17 mg/dL (0-40) Non-HDL Cholesterol Calculated 120 mg/dL (0-129) HDL Cholesterol 46 mg/dL (40-60) Cholesterol/HDL Ratio 3.6 Laboratory Tests Test 07/19/18 18:43 07/20/18 05:35 07/20/18 11:30 White Blood Count 9.0 x10^3/uL (4.0-11.0) 6.3 x10^3/uL (4.0-11.0) Red Blood Count 4.55 x10^6/uL (4.30-5.70) 4.14 x10^6/uL (4.30-5.70) Hemoglobin 14.0 g/dL (13.0-17.5) 12.6 g/dL (13.0-17.5) Hematocrit 41.5 % (39.0-53.0) 38.2 % (39.0-53.0) Mean Corpuscular Volume 91 fL (79-100) 93 fL (79-100) Mean Corpuscular Hemoglobin 31 pg (25-35) 31 pg (25-35) Mean Corpuscular Hemoglobin Concent 34 g/dL (31-37) 33 g/dL (31-37) Red Cell Distribution Width 14.3 % (11.5-14.5) 13.9 % (11.5-14.5) Platelet Count 258 x10^3/uL (140-400) 205 x10^3/uL (140-400) Neutrophils (%) (Auto) 74 % (31-73) 56 % (31-73) Lymphocytes (%) (Auto) 14 % (24-48) 23 % (24-48) Monocytes (%) (Auto) 8 % (0-9) 11 % (0-9) Eosinophils (%) (Auto) 3 % (0-3) 9 % (0-3) Basophils (%) (Auto) 1 % (0-3) 1 % (0-3) Neutrophils # (Auto) 6.7 x10^3uL (1.8-7.7) 3.6 x10^3uL (1.8-7.7) Lymphocytes # (Auto) 1.2 x10^3/uL (1.0-4.8) 1.5 x10^3/uL (1.0-4.8) Monocytes # (Auto) 0.7 x10^3/uL (0.0-1.1) 0.7 x10^3/uL (0.0-1.1) Eosinophils # (Auto) 0.3 x10^3/uL (0.0-0.7) 0.5 x10^3/uL (0.0-0.7) Basophils # (Auto) 0.1 x10^3/uL (0.0-0.2) 0.1 x10^3/uL (0.0-0.2) Prothrombin Time 13.6 SEC (11.7-14.0) 13.8 SEC (11.7-14.0) Prothromb Time International Ratio 1.1 (0.8-1.1) 1.1 (0.8-1.1) Sodium Level 137 mmol/L (136-145) 140 mmol/L (136-145) Potassium Level 4.3 mmol/L (3.5-5.1) 4.6 mmol/L (3.5-5.1) Chloride Level 102 mmol/L (98-107) 104 mmol/L (98-107) Carbon Dioxide Level 26 mmol/L (21-32) 29 mmol/L (21-32) Anion Gap 9 (6-14) 7 (6-14) Blood Urea Nitrogen 14 mg/dL (8-26) 13 mg/dL (8-26) Creatinine 1.4 mg/dL (0.7-1.3) 1.0 mg/dL (0.7-1.3) Estimated GFR (Cockcroft-Gault) 49.5 73.0 BUN/Creatinine Ratio 10 (6-20) Glucose Level 115 mg/dL (70-99) 92 mg/dL (70-99) Calcium Level 9.4 mg/dL (8.5-10.1) 8.8 mg/dL (8.5-10.1) Total Bilirubin 0.7 mg/dL (0.2-1.0) Aspartate Amino Transf (AST/SGOT) 14 U/L (15-37) Alanine Aminotransferase (ALT/SGPT) 17 U/L (16-63) Alkaline Phosphatase 81 U/L (46-116) Troponin I Quantitative < 0.017 ng/mL (0.000-0.055) IS-Zdq-[id number]-Type Natriuretic Peptide 559 pg/mL (0-124) Total Protein 6.8 g/dL (6.4-8.2) Albumin 3.8 g/dL (3.4-5.0) Albumin/Globulin Ratio 1.3 (1.0-1.7) Thyroid Stimulating Hormone (TSH) 0.822 uIU/mL (0.358-3.74) Heparin Anti-Xa Act, Unfractionated 0.18 IU/mL (0.30-0.70) 0.36 IU/mL (0.30-0.70) Magnesium Level 1.9 mg/dL (1.8-2.4) Triglycerides Level 83 mg/dL (0-150) Cholesterol Level 166 mg/dL (0-200) LDL Cholesterol, Calculated 103 mg/dL (0-100) VLDL Cholesterol, Calculated 17 mg/dL (0-40) Non-HDL Cholesterol Calculated 120 mg/dL (0-129) HDL Cholesterol 46 mg/dL (40-60) Cholesterol/HDL Ratio 3.6 Medications Current Medications Sodium Chloride 1,000 ml @ 1,000 mls/hr 1X ONCE IV Last administered on 07/19/18at 19:04; Start 07/19/18 at 19:00; Stop 07/19/18 at 19:59; Status DC Diltiazem HCl (Cardizem Iv Push) 10 mg 1X ONCE IVP Last administered on 07/19/18at 19:10; Start 07/19/18 at 19:00; Stop 07/19/18 at 19:03; Status DC Sodium Chloride 1,000 ml @ 100 mls/hr Q10H IV Last administered on 07/19/18at 23:26; Start 07/19/18 at 22:00; Stop 07/20/18 at 07:59; Status DC Ondansetron HCl (Zofran) 4 mg PRN Q6HRS PRN IV NAUSEA/VOMITING; Start 07/19/18 at 21:45 Acetaminophen/ Hydrocodone Bitart (Lortab 5/325) 1 tab PRN Q4HRS PRN PO MILD PAIN; Start 07/19/18 at 21:45 Acetaminophen (Tylenol) 650 mg PRN Q6HRS PRN PO Headaches, Temp > 101.5F; Start 07/19/18 at 21:45 Senna/Docusate Sodium (Senna Plus) 1 tab BID PO Last administered on 07/20/18at 07:44; Start 07/19/18 at 22:00 Lactulose (Lactulose) 20 gm PRN Q12HR PRN PO CONSTIPATION; Start 07/19/18 at 21:45 Heparin Sodium/ Dextrose 500 ml @ 0 mls/hr CONT PRN IV SEE I/O RECORD Last administered on 07/19/18at 23:35; Start 07/19/18 at 22:00 Metoprolol Tartrate (Lopressor) 25 mg BID PO Last administered on 07/20/18at 07:44; Start 07/19/18 at 22:00 Diltiazem HCl (Cardizem) 30 mg Q8HRS PO Last administered on 07/20/18at 06:19; Start 07/19/18 at 22:00; Stop 07/20/18 at 11:25; Status DC Warfarin Sodium (Coumadin) 6 mg DAILY PO Last administered on 07/19/18at 23:25; Start 07/19/18 at 23:00; Stop 07/20/18 at 07:37; Status DC Lisinopril (Prinivil) 10 mg DAILY PO Last administered on 07/20/18at 07:44; Start 07/20/18 at 09:00; Stop 07/20/18 at 11:25; Status DC Albuterol Sulfate (Ventolin Neb Soln) 2.5 mg RTQID NEB Last administered on 07/20/18at 11:33; Start 07/20/18 at 08:00 Warfarin Sodium (Coumadin Per Physician) 1 each PRN DAILY PRN MC SEE COMMENTS Last administered on 07/20/18at 12:20; Start 07/19/18 at 23:30 Warfarin Sodium (Coumadin) 6 mg DAILY16 PO ; Start 07/20/18 at 16:00 Lisinopril (Prinivil) 5 mg DAILY PO ; Start 07/21/18 at 09:00; Stop 07/21/18 at 09:00; Status DC Diltiazem HCl (Cardizem 24hr Cd) 120 mg DAILY PO ; Start 07/20/18 at 15:00 Active Scripts Active Reported Aspirin 81 Mg Tab.chew 1 Tab PO DAILY Lisinopril 10 Mg Tablet 10 Mg PO DAILY Metoprolol Tartrate 25 Mg Tablet 25 Mg PO BID Vitals/I & O Vital Sign - Last 24 Hours 07/19/18 07/19/18 07/19/18 07/19/18 18:27 19:08 19:10 19:38 Temp 97.8 97.8 Pulse 106 124 129 100 Resp 20 20 19 B/P (MAP) 102/59 (73) 136/63 (87) 136/63 113/59 (77) Pulse Ox 96 96 96 O2 Delivery Room Air Room Air Room Air 07/19/18 07/19/18 07/19/18 07/19/18 20:08 20:38 21:08 21:38 Pulse 118 92 98 92 Resp 22 24 24 18 B/P (MAP) 101/54 (70) 100/55 (70) 116/76 (89) 108/51 (70) Pulse Ox 93 95 93 95 O2 Delivery Room Air Room Air Room Air Room Air 07/19/18 07/19/18 07/19/18 07/19/18 22:05 23:00 23:25 23:25 Temp 97.9 97.9 Pulse 93 94 83 89 Resp 18 18 B/P (MAP) 106/70 (82) 98/62 (74) 98/62 98/62 Pulse Ox 98 O2 Delivery Room Air Room Air 07/20/18 07/20/18 07/20/18 07/20/18 01:00 03:00 05:00 06:00 Pulse 74 72 72 70 Resp 23 17 25 18 B/P (MAP) 102/62 (75) 98/65 (76) 109/71 (84) 101/56 (71) O2 Delivery Room Air Room Air Room Air Room Air 07/20/18 07/20/18 07/20/18 07/20/18 06:19 07:44 07:44 07:47 Pulse 69 74 74 B/P (MAP) 101/56 104/63 104/63 Pulse Ox 98 O2 Delivery Room Air 07/20/18 07/20/18 07/20/18 08:00 10:44 11:28 Temp 98.0 98.0 Pulse 80 Resp 19 B/P (MAP) 105/55 (72) Pulse Ox 98 97 O2 Delivery Room Air Room Air Room Air Intake and Output 07/19/18 07/19/1807/20/19 14:59 22:59 06:59 Intake Total 1000 ml 1791 ml Output Total 875 ml Balance 1000 ml 916 ml Images 06/02/18 ECHO - The left ventricular systolic function is normal and the ejection fraction is within normal range. The Ejection Fraction is >55%. There is normal LV segmental wall motion. There is a pacemaker lead in the right ventricle. Calculated aortic valve area is 2.4 cm2 with maximum pressure gradient of 23 mmHg and mean pressure gradient of 15 mmHg. No significant stenosis. Presumed bioprosthetic valve by history RONDA ALVES MD July 20, 2018 13:53
[2018-07-20] MEDS: WARFARIN 3 MG TABLET. PO SCH (14:49)
[2018-07-20] MEDS ORDERED: DIGOXIN IV 500 MCG/2 ML AMPUL. IV PRN (15:45)
--- NOTE | 2018-07-20 16:43 | NUR ---
SS following for discharge planning. SS reviewed pt chart. Pt is from home and is currently on room air. No discharge needs noted at this time. SS will continue to follow for discharge planning.
[2018-07-21 03:00] VITALS: BP 116/66
[2018-07-21] MEDS: HEPARIN 25,000UTS/500ML PREMIX 500 ML IV PRN (04:21)
[2018-07-21 05:39] LABS: BASO # 0.1 x10^3/uL (0.0-0.2); BASO % 1 % (0-3); EOS # 0.5 x10^3/uL (0.0-0.7); EOS % 7 % (0-3); HEMATOCRIT 40.5 % (39.0-53.0); HEMOGLOBIN 13.7 g/dL (13.0-17.5); LYMPH # 1.6 x10^3/uL (1.0-4.8); LYMPH % 22 % (24-48); MEAN CORPUSCULAR HEMOGLOBIN 31 pg (25-35); MEAN CORPUSCULAR HGB CONC 34 g/dL (31-37); MEAN CORPUSCULAR VOLUME 93 fL (79-100); MONO # 0.7 x10^3/uL (0.0-1.1); MONO % 10 % (0-9); NEUT # 4.4 x10^3uL (1.8-7.7); NEUT % 61 % (31-73); PLATELET COUNT 214 x10^3/uL (140-400); RED BLOOD COUNT 4.36 x10^6/uL (4.30-5.70); WHITE BLOOD COUNT 7.2 x10^3/uL (4.0-11.0)
[2018-07-21 05:48] LABS: POTASSIUM 4.3 mmol/L (3.5-5.1)
[2018-07-21 07:00] VITALS: BP 91/61
[2018-07-21 08:30] VITALS: BP 105/57
--- NOTE | 2018-07-21 08:44 | NUR ---
Patient ufh .057, rate change per protocol and ufh ordered for 1300 per protocol, see emar and labs. Addendum: 07/21/18 at 0921 by TAMEKA WAKEFIELD RN Correction, ufh 0.57
[2018-07-21] MEDS: SENNOSIDES/DOCUSATE 8.6/50MG TABLET. PO SCH (08:51)
[2018-07-21] MEDS: METOPROLOL TART IMMED RELEASE 25 MG TABLET. PO SCH (08:51)
[2018-07-21] MEDS: dilTIAZem HCL 30 MG TABLET PO SCH (08:52)
[2018-07-21] MEDS ORDERED: LISINOPRIL 5 MG TABLET. PO SCH (09:00)
--- NOTE | 2018-07-21 09:22 | NUR ---
Correction, ufh 0.57, see preceding note.
--- NOTE | 2018-07-21 09:24 | PDOC ---
PROGRESS NOTES Chief Complaint Chief Complaint A/P: Atrial fibrillation with rapid ventricular response - was responsive to 1x IV diltiazem dosing, now a little low BP, will try metoprolol 25mg BID and add cardizem if his BP tolerates it in the morning. Heparin GTT for elevated [id number], will bridge back to coumadin for afib. Consulted cardiology HTN - cont lisinopril, BB COPD - prn albuterol Smoker - counseled on cessation AMELIA - will monitor, give some gentle IVF S/p AVR - bioprosthetic. 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 As above, he had continued metoprolol and changed to ASA from coumadin. Will consult cardiology and anticoagulate for high risk for CVA FEN - Cardiac diet PPX - heparin and coumadin FULL CODE Dispo - admit to [facility] for afib with RVR at least 2 midnights History of Present Illness History of Present Illness Mr Costa ([facility]) is a 72yo M w/ PMHx HTN, COPD, smoker, AVR, PPM ([employer]), paroxysmal afib who p/w fast heart rate noted at home. Patient states that he felt his heart rate increased since this morning. Patient states that last month he was in [facility] for COPD exacerbation and was told that he was having atrial fibrillation. Patient states that he moved from [place] last December after release [facility] and does not have a local PCP. Lives in a retirement house currently. He was noted to have atrial fibrillation previously when noted with aortic stenosis and was treated with coumadin and metoprolol, however, he has transitioned to aspirin on his own and no longer taker any anticoagulation. Currently patient denies fever, chills, nausea, vomiting, diarrhea, dysuria, shortness of breath. Patient does complain of mild chest pain. He did recently have a COPD exacerbation and feels this set him off. He was 180bpm in EMS and in the 130s in ED, was initially responsive to 10mg cardizem bolus with correction to 90bpm, still in afib. Admitted to [facility] for further care 07/20: Overnight remained in slow afib. Seen by cardiology this morning. He agrees to coumadin therapy. Overnight no events. He is still feeling a bit short of breath, no longer feeling fluttering in his chest. Awaiting pacemaker interrogation. Still on heparin GTT, bridging with coumadin. Plan: May be able to d/c on coumadin without bridging if ok with cardiology, will get his INR at the [place]. Will d/w cardiology Vitals Vitals Vital Signs Date Time Temp Pulse Resp B/P (MAP) Pulse Ox O2 Delivery O2 Flow Rate FiO2 07/21/18 08:52 86 105/57 07/21/18 08:30 18 Room Air 07/21/18 07:00 98.2 96 98.2 Physical Exam General: Alert, Oriented X3, Cooperative, No acute distress Heart: Other (AFIB; 2/6 systolic murmur to ELIAS border) Abdomen: Soft, No tenderness Extremities: No cyanosis, No edema Skin: No breakdown, No significant lesion Labs LABS Laboratory Tests Test 07/20/18 11:30 07/20/18 17:40 07/21/18 04:15 Prothrombin Time 13.8 SEC (11.7-14.0) Prothromb Time International Ratio 1.1 (0.8-1.1) Heparin Anti-Xa Act, Unfractionated 0.36 IU/mL (0.30-0.70) 0.47 IU/mL (0.30-0.70) 0.57 IU/mL (0.30-0.70) White Blood Count 7.2 x10^3/uL (4.0-11.0) Red Blood Count 4.36 x10^6/uL (4.30-5.70) Hemoglobin 13.7 g/dL (13.0-17.5) Hematocrit 40.5 % (39.0-53.0) Mean Corpuscular Volume 93 fL (79-100) Mean Corpuscular Hemoglobin 31 pg (25-35) Mean Corpuscular Hemoglobin Concent 34 g/dL (31-37) Red Cell Distribution Width 14.0 % (11.5-14.5) Platelet Count 214 x10^3/uL (140-400) Neutrophils (%) (Auto) 61 % (31-73) Lymphocytes (%) (Auto) 22 % (24-48) Monocytes (%) (Auto) 10 % (0-9) Eosinophils (%) (Auto) 7 % (0-3) Basophils (%) (Auto) 1 % (0-3) Neutrophils # (Auto) 4.4 x10^3uL (1.8-7.7) Lymphocytes # (Auto) 1.6 x10^3/uL (1.0-4.8) Monocytes # (Auto) 0.7 x10^3/uL (0.0-1.1) Eosinophils # (Auto) 0.5 x10^3/uL (0.0-0.7) Basophils # (Auto) 0.1 x10^3/uL (0.0-0.2) Sodium Level 138 mmol/L (136-145) Potassium Level 4.3 mmol/L (3.5-5.1) Chloride Level 101 mmol/L (98-107) Carbon Dioxide Level 27 mmol/L (21-32) Anion Gap 10 (6-14) Blood Urea Nitrogen 11 mg/dL (8-26) Creatinine 1.0 mg/dL (0.7-1.3) Estimated GFR (Cockcroft-Gault) 73.0 Glucose Level 103 mg/dL (70-99) Calcium Level 9.0 mg/dL (8.5-10.1) Comment Review of Relevant I have reviewed the following items braydon (where applicable) has been applied. Labs Laboratory Tests Test 07/19/18 18:43 07/20/18 05:35 07/20/18 07:50 07/20/18 11:30 White Blood Count 9.0 x10^3/uL (4.0-11.0) 6.3 x10^3/uL (4.0-11.0) Red Blood Count 4.55 x10^6/uL (4.30-5.70) 4.14 x10^6/uL (4.30-5.70) Hemoglobin 14.0 g/dL (13.0-17.5) 12.6 g/dL (13.0-17.5) Hematocrit 41.5 % (39.0-53.0) 38.2 % (39.0-53.0) Mean Corpuscular Volume 91 fL (79-100) 93 fL (79-100) Mean Corpuscular Hemoglobin 31 pg (25-35) 31 pg (25-35) Mean Corpuscular Hemoglobin Concent 34 g/dL (31-37) 33 g/dL (31-37) Red Cell Distribution Width 14.3 % (11.5-14.5) 13.9 % (11.5-14.5) Platelet Count 258 x10^3/uL (140-400) 205 x10^3/uL (140-400) Neutrophils (%) (Auto) 74 % (31-73) 56 % (31-73) Lymphocytes (%) (Auto) 14 % (24-48) 23 % (24-48) Monocytes (%) (Auto) 8 % (0-9) 11 % (0-9) Eosinophils (%) (Auto) 3 % (0-3) 9 % (0-3) Basophils (%) (Auto) 1 % (0-3) 1 % (0-3) Neutrophils # (Auto) 6.7 x10^3uL (1.8-7.7) 3.6 x10^3uL (1.8-7.7) Lymphocytes # (Auto) 1.2 x10^3/uL (1.0-4.8) 1.5 x10^3/uL (1.0-4.8) Monocytes # (Auto) 0.7 x10^3/uL (0.0-1.1) 0.7 x10^3/uL (0.0-1.1) Eosinophils # (Auto) 0.3 x10^3/uL (0.0-0.7) 0.5 x10^3/uL (0.0-0.7) Basophils # (Auto) 0.1 x10^3/uL (0.0-0.2) 0.1 x10^3/uL (0.0-0.2) Prothrombin Time 13.6 SEC (11.7-14.0) 13.8 SEC (11.7-14.0) Prothromb Time International Ratio 1.1 (0.8-1.1) 1.1 (0.8-1.1) Sodium Level 137 mmol/L (136-145) 140 mmol/L (136-145) Potassium Level 4.3 mmol/L (3.5-5.1) 4.6 mmol/L (3.5-5.1) Chloride Level 102 mmol/L (98-107) 104 mmol/L (98-107) Carbon Dioxide Level 26 mmol/L (21-32) 29 mmol/L (21-32) Anion Gap 9 (6-14) 7 (6-14) Blood Urea Nitrogen 14 mg/dL (8-26) 13 mg/dL (8-26) Creatinine 1.4 mg/dL (0.7-1.3) 1.0 mg/dL (0.7-1.3) Estimated GFR (Cockcroft-Gault) 49.5 73.0 BUN/Creatinine Ratio 10 (6-20) Glucose Level 115 mg/dL (70-99) 92 mg/dL (70-99) Calcium Level 9.4 mg/dL (8.5-10.1) 8.8 mg/dL (8.5-10.1) Total Bilirubin 0.7 mg/dL (0.2-1.0) Aspartate Amino Transf (AST/SGOT) 14 U/L (15-37) Alanine Aminotransferase (ALT/SGPT) 17 U/L (16-63) Alkaline Phosphatase 81 U/L (46-116) Troponin I Quantitative < 0.017 ng/mL (0.000-0.055) DN-Faw-M-Type Natriuretic Peptide 559 pg/mL (0-124) Total Protein 6.8 g/dL (6.4-8.2) Albumin 3.8 g/dL (3.4-5.0) Albumin/Globulin Ratio 1.3 (1.0-1.7) Thyroid Stimulating Hormone (TSH) 0.822 uIU/mL (0.358-3.74) Heparin Anti-Xa Act, Unfractionated 0.18 IU/mL (0.30-0.70) 0.36 IU/mL (0.30-0.70) Magnesium Level 1.9 mg/dL (1.8-2.4) Triglycerides Level 83 mg/dL (0-150) Cholesterol Level 166 mg/dL (0-200) LDL Cholesterol, Calculated 103 mg/dL (0-100) VLDL Cholesterol, Calculated 17 mg/dL (0-40) Non-HDL Cholesterol Calculated 120 mg/dL (0-129) HDL Cholesterol 46 mg/dL (40-60) Cholesterol/HDL Ratio 3.6 Nasal Screen MRSA (PCR) Negative (Negative) Test 07/20/18 17:40 07/21/18 04:15 Heparin Anti-Xa Act, Unfractionated 0.47 IU/mL (0.30-0.70) 0.57 IU/mL (0.30-0.70) White Blood Count 7.2 x10^3/uL (4.0-11.0) Red Blood Count 4.36 x10^6/uL (4.30-5.70) Hemoglobin 13.7 g/dL (13.0-17.5) Hematocrit 40.5 % (39.0-53.0) Mean Corpuscular Volume 93 fL (79-100) Mean Corpuscular Hemoglobin 31 pg (25-35) Mean Corpuscular Hemoglobin Concent 34 g/dL (31-37) Red Cell Distribution Width 14.0 % (11.5-14.5) Platelet Count 214 x10^3/uL (140-400) Neutrophils (%) (Auto) 61 % (31-73) Lymphocytes (%) (Auto) 22 % (24-48) Monocytes (%) (Auto) 10 % (0-9) Eosinophils (%) (Auto) 7 % (0-3) Basophils (%) (Auto) 1 % (0-3) Neutrophils # (Auto) 4.4 x10^3uL (1.8-7.7) Lymphocytes # (Auto) 1.6 x10^3/uL (1.0-4.8) Monocytes # (Auto) 0.7 x10^3/uL (0.0-1.1) Eosinophils # (Auto) 0.5 x10^3/uL (0.0-0.7) Basophils # (Auto) 0.1 x10^3/uL (0.0-0.2) Sodium Level 138 mmol/L (136-145) Potassium Level 4.3 mmol/L (3.5-5.1) Chloride Level 101 mmol/L (98-107) Carbon Dioxide Level 27 mmol/L (21-32) Anion Gap 10 (6-14) Blood Urea Nitrogen 11 mg/dL (8-26) Creatinine 1.0 mg/dL (0.7-1.3) Estimated GFR (Cockcroft-Gault) 73.0 Glucose Level 103 mg/dL (70-99) Calcium Level 9.0 mg/dL (8.5-10.1) Laboratory Tests Test 07/20/18 11:30 07/20/18 17:40 07/21/18 04:15 Prothrombin Time 13.8 SEC (11.7-14.0) Prothromb Time International Ratio 1.1 (0.8-1.1) Heparin Anti-Xa Act, Unfractionated 0.36 IU/mL (0.30-0.70) 0.47 IU/mL (0.30-0.70) 0.57 IU/mL (0.30-0.70) White Blood Count 7.2 x10^3/uL (4.0-11.0) Red Blood Count 4.36 x10^6/uL (4.30-5.70) Hemoglobin 13.7 g/dL (13.0-17.5) Hematocrit 40.5 % (39.0-53.0) Mean Corpuscular Volume 93 fL (79-100) Mean Corpuscular Hemoglobin 31 pg (25-35) Mean Corpuscular Hemoglobin Concent 34 g/dL (31-37) Red Cell Distribution Width 14.0 % (11.5-14.5) Platelet Count 214 x10^3/uL (140-400) Neutrophils (%) (Auto) 61 % (31-73) Lymphocytes (%) (Auto) 22 % (24-48) Monocytes (%) (Auto) 10 % (0-9) Eosinophils (%) (Auto) 7 % (0-3) Basophils (%) (Auto) 1 % (0-3) Neutrophils # (Auto) 4.4 x10^3uL (1.8-7.7) Lymphocytes # (Auto) 1.6 x10^3/uL (1.0-4.8) Monocytes # (Auto) 0.7 x10^3/uL (0.0-1.1) Eosinophils # (Auto) 0.5 x10^3/uL (0.0-0.7) Basophils # (Auto) 0.1 x10^3/uL (0.0-0.2) Sodium Level 138 mmol/L (136-145) Potassium Level 4.3 mmol/L (3.5-5.1) Chloride Level 101 mmol/L (98-107) Carbon Dioxide Level 27 mmol/L (21-32) Anion Gap 10 (6-14) Blood Urea Nitrogen 11 mg/dL (8-26) Creatinine 1.0 mg/dL (0.7-1.3) Estimated GFR (Cockcroft-Gault) 73.0 Glucose Level 103 mg/dL (70-99) Calcium Level 9.0 mg/dL (8.5-10.1) Medications Current Medications Sodium Chloride 1,000 ml @ 1,000 mls/hr 1X ONCE IV Last administered on 07/19/18 19:04; Start 07/19/18 at 19:00; Stop 07/19/18 at 19:59; Status DC Diltiazem HCl (Cardizem Iv Push) 10 mg 1X ONCE IVP Last administered on 07/19/18 19:10; Start 07/19/18 at 19:00; Stop 07/19/18 at 19:03; Status DC Sodium Chloride 1,000 ml @ 100 mls/hr Q10H IV Last administered on 07/19/18at 23:26; Start 07/19/18 at 22:00; Stop 07/20/18 at 07:59; Status DC Ondansetron HCl (Zofran) 4 mg PRN Q6HRS PRN IV NAUSEA/VOMITING; Start 07/19/18 at 21:45 Acetaminophen/ Hydrocodone Bitart (Lortab 5/325) 1 tab PRN Q4HRS PRN PO MILD PAIN; Start 07/19/18 at 21:45 Acetaminophen (Tylenol) 650 mg PRN Q6HRS PRN PO Headaches, Temp > 101.5F; Start 07/19/18 at 21:45 Senna/Docusate Sodium (Senna Plus) 1 tab BID PO Last administered on 07/21/18 08:51; Start 07/19/18 at 22:00 Lactulose (Lactulose) 20 gm PRN Q12HR PRN PO CONSTIPATION; Start 07/19/18 at 21:45 Heparin Sodium/ Dextrose 500 ml @ 0 mls/hr CONT PRN IV SEE I/O RECORD Last administered on 07/21/18 04:21; Start 07/19/18 at 22:00 Metoprolol Tartrate (Lopressor) 25 mg BID PO Last administered on 07/21/18at 08:51; Start 07/19/18 at 22:00 Diltiazem HCl (Cardizem) 30 mg Q8HRS PO Last administered on 07/20/18at 06:19; Start 07/19/18 at 22:00; Stop 07/20/18 at 11:25; Status DC Warfarin Sodium (Coumadin) 6 mg DAILY PO Last administered on 07/19/18at 23:25; Start 07/19/18 at 23:00; Stop 07/20/18 at 07:37; Status DC Lisinopril (Prinivil) 10 mg DAILY PO Last administered on 07/20/18at 07:44; Start 07/20/18 at 09:00; Stop 07/20/18 at 11:25; Status DC Albuterol Sulfate (Ventolin Neb Soln) 2.5 mg RTQID NEB Last administered on 07/20/18at 21:50; Start 07/20/18 at 08:00 Warfarin Sodium (Coumadin Per Physician) 1 each PRN DAILY PRN MC SEE COMMENTS Last administered on 07/20/18at 12:20; Start 07/19/18 at 23:30 Warfarin Sodium (Coumadin) 6 mg DAILY16 PO Last administered on 07/20/18at 14:49; Start 07/20/18 at 16:00 Lisinopril (Prinivil) 5 mg DAILY PO ; Start 07/21/18 at 09:00; Stop 07/21/18 at 09:00; Status DC Diltiazem HCl (Cardizem 24hr Cd) 120 mg DAILY PO ; Start 07/20/18 at 15:00; Stop 07/20/18 at 15:34; Status DC Diltiazem HCl (Cardizem) 30 mg BID PO Last administered on 07/21/18at 08:52; Start 07/20/18 at 21:00 Digoxin (Lanoxin) 250 mcg PRN DAILY PRN IV for sustained AFIB RVR; Start 07/20/18 at 15:45 Active Scripts Active Reported Aspirin 81 Mg Tab.chew 1 Tab PO DAILY Lisinopril 10 Mg Tablet 10 Mg PO DAILY Metoprolol Tartrate 25 Mg Tablet 25 Mg PO BID Vitals/I & O Vital Sign - Last 24 Hours 07/20/18 07/20/18 07/20/18 07/20/18 10:44 11:28 14:26 14:31 Temp 98.0 98.0 98.0 98.0 Pulse 80 78 Resp 19 24 B/P (MAP) 105/55 (72) 126/63 (84) Pulse Ox 98 97 97 97 O2 Delivery Room Air Room Air Room Air Room Air 07/20/18 07/20/18 07/20/18 07/20/18 14:56 16:13 19:00 20:00 Pulse 81 71 83 Resp 22 B/P (MAP) 99/54 (69) 110/60 (77) 101/53 (69) Pulse Ox 98 O2 Delivery Room Air Room Air 07/20/18 07/20/18 07/20/18 07/20/18 20:00 20:00 20:58 20:59 Pulse 83 83 77 78 Resp 22 22 B/P (MAP) 101/53 (69) 101/53 (69) 121/54 121/54 Pulse Ox 98 98 O2 Delivery Room Air Room Air 07/20/18 07/20/18 07/21/18 07/21/18 21:51 23:00 03:00 07:00 Temp 98.7 98.2 98.7 98.2 Pulse 83 87 91 Resp 22 20 18 B/P (MAP) 104/78 (87) 116/66 (83) 91/61 (71) Pulse Ox 97 98 98 96 O2 Delivery Room Air Room Air Room Air Room Air 07/21/18 07/21/18 07/21/18 07/21/18 08:00 08:30 08:51 08:52 Pulse 86 86 86 Resp 18 B/P (MAP) 105/57 (73) 105/57 105/57 O2 Delivery Room Air Room Air Intake and Output 07/20/18 07/20/18 07/21/18 15:00 23:00 07:00 Intake Total 980 ml 1200 ml 1239 ml Output Total 1650 ml 2200 ml 1200 ml Balance -670 ml -1000 ml 39 ml RONDA ALVES MD July 21, 2018 09:24
--- NOTE | 2018-07-21 09:48 | NUR ---
Tarik with [employer] here to interrogate pacemaker.
--- NOTE | 2018-07-21 10:40 | NUR ---
Pacemaker interrogation lisa and Ruth with [employer] communicated results and changes to Annmarie Hathaway APRN.
[2018-07-21 10:55] VITALS: BP 98/59
[2018-07-21] MEDS: ALBUTEROL SULFATE 2.5 MG/3 ML NEBU. NEB SCH ×3 (12:05→15:30)
--- NOTE | 2018-07-21 12:14 | PDOC ---
CRAMEN DIAZ MANAGER JAVA 07/21/18 1214: CARDIO Progress Notes Date and Time Date of Service 07/21/2018 Time of Evaluation 1140 Subjective Subjective: No Chest Pain, No shortness of breath, No Palpitations Vitals Vitals Vital Signs Date Time Temp Pulse Resp B/P (MAP) Pulse Ox O2 Delivery O2 Flow Rate FiO2 07/21/18 10:55 97.4 70 17 98/59 (72) 99 Room Air 97.4 Weight Weight [ ] Input and Output Intake and Output Intake and Output 07/21/18 07:00 Intake Total 3419 ml Output Total 5050 ml Balance -1631 ml Intake Oral 2580 ml IV Total 839 ml Output Urine Total 5050 ml Laboratory Labs Laboratory Tests Test 07/20/18 17:40 07/21/18 04:15 Heparin Anti-Xa Act, Unfractionated 0.47 IU/mL (0.30-0.70) 0.57 IU/mL (0.30-0.70) White Blood Count 7.2 x10^3/uL (4.0-11.0) Red Blood Count 4.36 x10^6/uL (4.30-5.70) Hemoglobin 13.7 g/dL (13.0-17.5) Hematocrit 40.5 % (39.0-53.0) Mean Corpuscular Volume 93 fL (79-100) Mean Corpuscular Hemoglobin 31 pg (25-35) Mean Corpuscular Hemoglobin Concent 34 g/dL (31-37) Red Cell Distribution Width 14.0 % (11.5-14.5) Platelet Count 214 x10^3/uL (140-400) Neutrophils (%) (Auto) 61 % (31-73) Lymphocytes (%) (Auto) 22 % (24-48) Monocytes (%) (Auto) 10 % (0-9) Eosinophils (%) (Auto) 7 % (0-3) Basophils (%) (Auto) 1 % (0-3) Neutrophils # (Auto) 4.4 x10^3uL (1.8-7.7) Lymphocytes # (Auto) 1.6 x10^3/uL (1.0-4.8) Monocytes # (Auto) 0.7 x10^3/uL (0.0-1.1) Eosinophils # (Auto) 0.5 x10^3/uL (0.0-0.7) Basophils # (Auto) 0.1 x10^3/uL (0.0-0.2) Sodium Level 138 mmol/L (136-145) Potassium Level 4.3 mmol/L (3.5-5.1) Chloride Level 101 mmol/L (98-107) Carbon Dioxide Level 27 mmol/L (21-32) Anion Gap 10 (6-14) Blood Urea Nitrogen 11 mg/dL (8-26) Creatinine 1.0 mg/dL (0.7-1.3) Estimated GFR (Cockcroft-Gault) 73.0 Glucose Level 103 mg/dL (70-99) Calcium Level 9.0 mg/dL (8.5-10.1) Physical Exam HEENT: Neck Supple W Full Motion Chest: Symmetric LUNGS: Clear to Auscultation Heart: S1S2, irregularly irregular (AFIB) Abdomen: Soft N/T Extremities: No Edema, No Calf Tenderness Neurology: alert, oriented, follow commands Assessment Assessment 1. AFIB RVR: rate controlled 2. HTN: controlled at low end 3. PPM in situ: VR1. 15% AFIB burdenm 2% Vpaced, RV and atrial sensitivity increased per rep. 1.5 yrs battery life. 4. COPD: stable 5. hx of open bioprosthetic AVR in 2009 stable per recent TTE 6. Homelessness: lives in jail house Recommendations 1. Will need outpt stress test. 2. Continue with metoprolol and cardizem. DC lisinopril for now to have better room with AV thom blocking agents if needed. 3. Coumadin therapy. Will reeval as an outpt after sufficient OAC for possible CVN 4. Follow up in office in 4 weeks. 5. HBPM discussed for 1 wk and to call if outside parameters. Check INR. 6. Will follow along peripherally KIMBERLY DORANTES MD 07/21/18 1305: CARDIO Progress Notes Assessment Assessment Patient seen and examined. Agree with PLANT MACHINIST's assessment and plan. Atrial fibrillation rate better controlled Continue coumadin for AC and plan outpatient cardioversion in 3-4 weeks Plan ischemic evaluation as outpatient as well We will follow as needed CARMEN IDAZ APRN July 21, 2018 12:14 KIMBERLY DORANTES MD July 21, 2018 13:05
[2018-07-21 12:45] LABS: PROTHROMBIN TIME PATIENT 14.8 SEC (11.7-14.0)
--- NOTE | 2018-07-21 12:51 | NUR ---
No change in heparin drip rate, UFH 0.47, see emar and IV spreadsheet. See orders.
[2018-07-21] MEDS ORDERED: METO25TA4 PO (14:52)
[2018-07-21] MEDS ORDERED: DILT30TA26 PO (14:52)
[2018-07-21] MEDS ORDERED: ALBU2.5V8 NEB (14:52)
[2018-07-21] MEDS ORDERED: WARF3TAB54 PO (14:52)
--- NOTE | 2018-07-21 14:59 | PDOC3 ---
Discharge Summary Visit Information Date of Admission: July 19, 2018 Date of Discharge: July 21, 2018 Admitting Diagnosis: Afib with RVR Final Diagnosis Afib with RVR Brief Hospital Course Allergies Allergies Coded Allergies Type Severity Reaction Last Updated Verified No Known Drug Allergies 07/19/18 No Vital Signs Vital Signs Date Time Temp Pulse Resp B/P (MAP) Pulse Ox O2 Delivery O2 Flow Rate FiO2 07/21/18 10:55 97.4 70 17 98/59 (72) 99 Room Air 97.4 Lab Results Laboratory Tests Test 07/19/18 18:43 07/20/18 05:35 07/20/18 07:50 07/20/18 11:30 White Blood Count 9.0 x10^3/uL (4.0-11.0) 6.3 x10^3/uL (4.0-11.0) Red Blood Count 4.55 x10^6/uL (4.30-5.70) 4.14 x10^6/uL (4.30-5.70) Hemoglobin 14.0 g/dL (13.0-17.5) 12.6 g/dL (13.0-17.5) Hematocrit 41.5 % (39.0-53.0) 38.2 % (39.0-53.0) Mean Corpuscular Volume 91 fL (79-100) 93 fL (79-100) Mean Corpuscular Hemoglobin 31 pg (25-35) 31 pg (25-35) Mean Corpuscular Hemoglobin Concent 34 g/dL (31-37) 33 g/dL (31-37) Red Cell Distribution Width 14.3 % (11.5-14.5) 13.9 % (11.5-14.5) Platelet Count 258 x10^3/uL (140-400) 205 x10^3/uL (140-400) Neutrophils (%) (Auto) 74 % (31-73) 56 % (31-73) Lymphocytes (%) (Auto) 14 % (24-48) 23 % (24-48) Monocytes (%) (Auto) 8 % (0-9) 11 % (0-9) Eosinophils (%) (Auto) 3 % (0-3) 9 % (0-3) Basophils (%) (Auto) 1 % (0-3) 1 % (0-3) Neutrophils # (Auto) 6.7 x10^3uL (1.8-7.7) 3.6 x10^3uL (1.8-7.7) Lymphocytes # (Auto) 1.2 x10^3/uL (1.0-4.8) 1.5 x10^3/uL (1.0-4.8) Monocytes # (Auto) 0.7 x10^3/uL (0.0-1.1) 0.7 x10^3/uL (0.0-1.1) Eosinophils # (Auto) 0.3 x10^3/uL (0.0-0.7) 0.5 x10^3/uL (0.0-0.7) Basophils # (Auto) 0.1 x10^3/uL (0.0-0.2) 0.1 x10^3/uL (0.0-0.2) Prothrombin Time 13.6 SEC (11.7-14.0) 13.8 SEC (11.7-14.0) Prothromb Time International Ratio 1.1 (0.8-1.1) 1.1 (0.8-1.1) Sodium Level 137 mmol/L (136-145) 140 mmol/L (136-145) Potassium Level 4.3 mmol/L (3.5-5.1) 4.6 mmol/L (3.5-5.1) Chloride Level 102 mmol/L (98-107) 104 mmol/L (98-107) Carbon Dioxide Level 26 mmol/L (21-32) 29 mmol/L (21-32) Anion Gap 9 (6-14) 7 (6-14) Blood Urea Nitrogen 14 mg/dL (8-26) 13 mg/dL (8-26) Creatinine 1.4 mg/dL (0.7-1.3) 1.0 mg/dL (0.7-1.3) Estimated GFR (Cockcroft-Gault) 49.5 73.0 BUN/Creatinine Ratio 10 (6-20) Glucose Level 115 mg/dL (70-99) 92 mg/dL (70-99) Calcium Level 9.4 mg/dL (8.5-10.1) 8.8 mg/dL (8.5-10.1) Total Bilirubin 0.7 mg/dL (0.2-1.0) Aspartate Amino Transf (AST/SGOT) 14 U/L (15-37) Alanine Aminotransferase (ALT/SGPT) 17 U/L (16-63) Alkaline Phosphatase 81 U/L (46-116) Troponin I Quantitative < 0.017 ng/mL (0.000-0.055) TY-Dhy-K-Type Natriuretic Peptide 559 pg/mL (0-124) Total Protein 6.8 g/dL (6.4-8.2) Albumin 3.8 g/dL (3.4-5.0) Albumin/Globulin Ratio 1.3 (1.0-1.7) Thyroid Stimulating Hormone (TSH) 0.822 uIU/mL (0.358-3.74) Heparin Anti-Xa Act, Unfractionated 0.18 IU/mL (0.30-0.70) 0.36 IU/mL (0.30-0.70) Magnesium Level 1.9 mg/dL (1.8-2.4) Triglycerides Level 83 mg/dL (0-150) Cholesterol Level 166 mg/dL (0-200) LDL Cholesterol, Calculated 103 mg/dL (0-100) VLDL Cholesterol, Calculated 17 mg/dL (0-40) Non-HDL Cholesterol Calculated 120 mg/dL (0-129) HDL Cholesterol 46 mg/dL (40-60) Cholesterol/HDL Ratio 3.6 Nasal Screen MRSA (PCR) Negative (Negative) Test 07/20/18 17:40 07/21/18 04:15 07/21/18 12:20 Heparin Anti-Xa Act, Unfractionated 0.47 IU/mL (0.30-0.70) 0.57 IU/mL (0.30-0.70) 0.47 IU/mL (0.30-0.70) White Blood Count 7.2 x10^3/uL (4.0-11.0) Red Blood Count 4.36 x10^6/uL (4.30-5.70) Hemoglobin 13.7 g/dL (13.0-17.5) Hematocrit 40.5 % (39.0-53.0) Mean Corpuscular Volume 93 fL (79-100) Mean Corpuscular Hemoglobin 31 pg (25-35) Mean Corpuscular Hemoglobin Concent 34 g/dL (31-37) Red Cell Distribution Width 14.0 % (11.5-14.5) Platelet Count 214 x10^3/uL (140-400) Neutrophils (%) (Auto) 61 % (31-73) Lymphocytes (%) (Auto) 22 % (24-48) Monocytes (%) (Auto) 10 % (0-9) Eosinophils (%) (Auto) 7 % (0-3) Basophils (%) (Auto) 1 % (0-3) Neutrophils # (Auto) 4.4 x10^3uL (1.8-7.7) Lymphocytes # (Auto) 1.6 x10^3/uL (1.0-4.8) Monocytes # (Auto) 0.7 x10^3/uL (0.0-1.1) Eosinophils # (Auto) 0.5 x10^3/uL (0.0-0.7) Basophils # (Auto) 0.1 x10^3/uL (0.0-0.2) Sodium Level 138 mmol/L (136-145) Potassium Level 4.3 mmol/L (3.5-5.1) Chloride Level 101 mmol/L (98-107) Carbon Dioxide Level 27 mmol/L (21-32) Anion Gap 10 (6-14) Blood Urea Nitrogen 11 mg/dL (8-26) Creatinine 1.0 mg/dL (0.7-1.3) Estimated GFR (Cockcroft-Gault) 73.0 Glucose Level 103 mg/dL (70-99) Calcium Level 9.0 mg/dL (8.5-10.1) Prothrombin Time 14.8 SEC (11.7-14.0) Prothromb Time International Ratio 1.2 (0.8-1.1) Laboratory Tests Test 07/20/18 17:40 07/21/18 04:15 07/21/18 12:20 Heparin Anti-Xa Act, Unfractionated 0.47 IU/mL (0.30-0.70) 0.57 IU/mL (0.30-0.70) 0.47 IU/mL (0.30-0.70) White Blood Count 7.2 x10^3/uL (4.0-11.0) Red Blood Count 4.36 x10^6/uL (4.30-5.70) Hemoglobin 13.7 g/dL (13.0-17.5) Hematocrit 40.5 % (39.0-53.0) Mean Corpuscular Volume 93 fL (79-100) Mean Corpuscular Hemoglobin 31 pg (25-35) Mean Corpuscular Hemoglobin Concent 34 g/dL (31-37) Red Cell Distribution Width 14.0 % (11.5-14.5) Platelet Count 214 x10^3/uL (140-400) Neutrophils (%) (Auto) 61 % (31-73) Lymphocytes (%) (Auto) 22 % (24-48) Monocytes (%) (Auto) 10 % (0-9) Eosinophils (%) (Auto) 7 % (0-3) Basophils (%) (Auto) 1 % (0-3) Neutrophils # (Auto) 4.4 x10^3uL (1.8-7.7) Lymphocytes # (Auto) 1.6 x10^3/uL (1.0-4.8) Monocytes # (Auto) 0.7 x10^3/uL (0.0-1.1) Eosinophils # (Auto) 0.5 x10^3/uL (0.0-0.7) Basophils # (Auto) 0.1 x10^3/uL (0.0-0.2) Sodium Level 138 mmol/L (136-145) Potassium Level 4.3 mmol/L (3.5-5.1) Chloride Level 101 mmol/L (98-107) Carbon Dioxide Level 27 mmol/L (21-32) Anion Gap 10 (6-14) Blood Urea Nitrogen 11 mg/dL (8-26) Creatinine 1.0 mg/dL (0.7-1.3) Estimated GFR (Cockcroft-Gault) 73.0 Glucose Level 103 mg/dL (70-99) Calcium Level 9.0 mg/dL (8.5-10.1) Prothrombin Time 14.8 SEC (11.7-14.0) Prothromb Time International Ratio 1.2 (0.8-1.1) Brief Hospital Course Mr Costa ([facility]) is a 72yo M w/ PMHx HTN, COPD, smoker, AVR, PPM ([employer]), paroxysmal afib who p/w fast heart rate noted at home. Patient states that he felt his heart rate increased since this morning. Patient states that last month he was in [facility] for COPD exacerbation and was told that he was having atrial fibrillation. Patient states that he moved from [place] last December after release from [facility] and does not have a local PCP. Lives [facility] a [facility] house currently. He was noted to have atrial fibrillation previously when noted with aortic stenosis and was treated with coumadin and metoprolol, however, he has transitioned to aspirin on his own and no longer taker any anticoagulation. Currently patient denies fever, chills, nausea, vomiting, diarrhea, dysuria, shortness of breath. Patient does complain of mild chest pain. He did recently have a COPD exacerbation and feels this set him off. He was 180bpm in EMS and in the 130s in ED, was initially responsive to 10mg cardizem bolus with correction to 90bpm, still in afib. Admitted to [facility] for further care 07/20: Overnight remained in slow afib. Seen by cardiology this morning. He agrees to coumadin therapy. Overnight no events. He is still feeling a bit short of breath, no longer feeling fluttering in his chest. BP dropped a bit with both diltiazem and metoprolol, held his lisinopril. Seen by cardiology for above treatments. Assessment: A/P: Atrial fibrillation with rapid ventricular response - was responsive to 1x IV diltiazem dosing, now a little low BP, will try metoprolol 25mg BID and add cardizem if his BP tolerates it in the morning. Heparin GTT for elevated CHADS2 Vasc, will bridge back to coumadin for afib. Consulted cardiology HTN - cont lisinopril, BB COPD - prn albuterol Smoker - counseled on cessation AMELIA - will monitor, give some gentle IVF S/p AVR - bioprosthetic. Stable PPM ([employer]) - is 12 years old no history of generator change or battery check Paroxysmal afib - historically is noted when he was in [facility] skilled nursing. As above, he had continued metoprolol and changed to ASA from coumadin. Will consult cardiology and anticoagulate for high risk for CVA Plan: [employer] interrogated and adjusted pacer - 1.5 years battery life remaining. Outpatient cardiology f/u and stress testing as well D/c on coumadin without bridging if ok with cardiology, will get his INR at the [facility]. Will d/w cardiology Greater than 30 minutes spent on discharge. Discharge Information Condition at Discharge: Improved Follow Up: Weeks (2) Disposition/Orders: D/C to Home Scheduled Albuterol Sulfate (Proair Hfa) 8.5 Gm Hfa.aer.ad, 2.5 MG NEB RTQID for Bronchitis/COPD for 30 Days, #1 Ref 2 Prescribed by: RONDA ALVES MD on 07/21/181451 Aspirin (Aspirin) 81 Mg Tab.chew, 1 TAB PO DAILY for blood thinner, #30 Ref 3 (Reported) Entered as Reported by: KEVIN EDWARDS on 07/19/182222 Last Taken: 81 on 07/19/18899 Last Action: New Order on 07/19/182222 by KEVIN EDWARDS Diltiazem Hcl (Cardizem Tablet) 30 Mg Tablet, 30 MG PO BID for Afib for 30 Days, #60 Ref 5 Prescribed by: RONDA ALVES MD on 07/21/181451 Metoprolol Tartrate (Metoprolol Tartrate) 25 Mg Tablet, 25 MG PO BID for FOR HYPERTENSION for 30 Days, #60 Ref 5 Prescribed by: RONDA ALVES MD on 07/21/181451 Warfarin Sodium (Coumadin) 3 Mg Tablet, 6 MG PO DAILY16 for Afib for 30 Days, #60 Change dosing based on INR at [facility] Prescribed by: RONDA ALVES MD on 07/21/181451 Discontinued Medications Lisinopril (Lisinopril) 10 Mg Tablet, 10 MG PO DAILY for FOR HYPERTENSION, #30 Ref 0 (Reported) Entered as Reported by: KEVIN EDWARDS on 07/19/182220 Last Taken: 10 on 07/19/18 09 Last Action: Continued on 07/19/182299 by MD JOSELYN CARMONA CHRISTOPHER S MD July 21, 2018 14:59
[2018-07-21 15:00] VITALS: BP 114/65
[2018-07-21] MEDS: WARFARIN 3 MG TABLET. PO SCH (15:39)
--- NOTE | 2018-07-21 16:08 | NUR ---
Dr. Valdez here to discharge patient. Discharge instructions, medications and prescriptions reviewed with patient, he verb. understanding all instructions and denies questions. Patient discharge to home with all belongings, instructions and prescriptions per cab.
== END 2018-07-21 16:10 | disposition home or self-care (01) | DRG 308 ==
LOC: ER 18:27 → 1 WEST ICU 20:09
PROVIDERS: ADMIT Internal Medicine; ATTEND Internal Medicine
DX: I48.0 Paroxysmal atrial fibrillation (principal); N17.0 Acute kidney failure with tubular necrosis; J98.11 Atelectasis; E78.5 Hyperlipidemia, unspecified; F17.210 Nicotine dependence, cigarettes, uncomplicated; I10 Essential (primary) hypertension; Z59.0 Homelessness; Z79.01 Long term (current) use of anticoagulants; J44.9 Chronic obstructive pulmonary disease, unspecified; Z79.899 Other long term (current) drug therapy; M19.90 Unspecified osteoarthritis, unspecified site; Z82.49 Family history of ischemic heart disease and other diseases of the circulatory system; Z92.3 Personal history of irradiation; Z95.0 Presence of cardiac pacemaker; Z95.3 Presence of xenogenic heart valve; Z85.46 Personal history of malignant neoplasm of prostate; Z87.01 Personal history of pneumonia (recurrent)
CPT/HCPCS: 36415; 71045; 80048; 80053; 80061; 83735; 83880; 84443; 84484; 85025; 85520; 85610; 87641; 93005; 94640; 96361; 96374; J3490; J7030; J7613; 99285-25

== ENCOUNTER 2021-02-13 20:58 | Emergency (ER) | payer MEDICARE ==
[~2021-02-13] VITALS: Ht 177.8 cm; Wt 113.0 kg
[~2021-02-13 20:58] MED LIST: ALBU2.5V8 NEB; ASPI-630 PO; DILT30TA26 PO; LISI10TA16 PO; METO25TA4 PO; WARF3TAB54 PO
[2021-02-13] MEDS ORDERED: NITROGLYCERIN SUBLINGUAL 0.4 MG BOTTLE OF 25. SL ONE (21:12)
[2021-02-13] MEDS ORDERED: NITROGLYCERIN SUBLINGUAL 0.4 MG BOTTLE OF 25. SL PRN (21:15)
[2021-02-13 21:18] LABS: CLARITY,URINE BLOODY; COLOR,URINE RED
--- NOTE | 2021-02-13 21:20 | PHYS DOC ---
Past Medical History Past Medical History: A-Fib, COPD, Hypertension Past Surgical History: Pacemaker, Other Additional Past Surgical Histo: AORTIC VALVE REPLACEMENT Smoking Status: Former Smoker Alcohol Use: None Drug Use: None General Adult EDM: Chief Complaint: CHEST PAIN HPI: HPI: Patient is a 75 year old male who presents via EMS from scene present for reports of gross hematuria as well as chest pain. The patient reports that shortly prior to arrival, he got up to use the bathroom and noticed gross hematuria, passed clots in his urine. He reports shortly after he developed some chest tightness. The pain is been constant, nonradiating, feels sharp. He denies dyspnea, dizziness. He reports mild nausea, no diaphoresis. No vomiting. No syncope. No cough or hemoptysis reported. He reports that he has chronic urinary urgency, which is unchanged for many years. Reports history of previous prostate cancer, which is treated many years ago at a fpc in [facility]. He does report for the past month or so he has had a feeling of abdominal bloating and abdominal discomfort and cramping. He denies anorexia. He denies weight loss. He denies fevers or chills. He denies bowel habit changes. EMS gave him 325 mg of aspirin as well as 2 sublingual nitroglycerin in route, he reports that the nitroglycerin helped somewhat. Review of Systems: Review of Systems: Constitutional: Denies fever or chills. [] HENT: Denies nasal congestion or sore throat. Denies epistaxis. Respiratory: Denies cough or shortness of breath. [] Cardiovascular: Reports chest pain. Denies peripheral edema. GI: Reports abdominal pain and bloating. Reports nausea without vomiting. Denies diarrhea or constipation, denies melena or hematochezia. : Gross hematuria and urinary urgency. Musculoskeletal: Denies back pain or joint pain. [] Integument: Denies rash. [] Neurologic: Denies headache, focal weakness or sensory changes. [] Endocrine: Denies polyuria or polydipsia. [] Lymphatic: Denies swollen glands. [] Psychiatric: Denies depression or anxiety. [] Heart Score: C/O Chest Pain: Yes HEART Score for Chest Pain: HEART Score for Chest Pain Response (Comments) Value History Moderately Suspicious 1 ECG Nonspecific Repolarizatio 1 Age > 65 2 Risk Factors >3 Risk Factors or Hx CAD 2 Troponin < Normal Limit 0 Total 6 Risk Factors: Risk Factors: DM, Current or recent (<one month) smoker, HTN, HLP, family his tory of CAD, obesity. Risk Scores: Score 0 - 3: 2.5% MACE over next 6 weeks - Discharge Home Score 4 - 6: 20.3% MACE over next 6 weeks - Admit for Clinical Observation Score 7 - 10: 72.7% MACE over next 6 weeks - Early Invasive Strategies Current Medications: Current Medications Medications (Trade) Dose Ordered Sig/Lauren Start Time Stop Time Status Last Admin Dose Admin Nitroglycerin (Nitrostat) 0.4 mg STK-MED ONCE 02/13/21 21:12 02/13/21 21:13 DC Allergies: Allergies: Allergies Coded Allergies Type Severity Reaction Last Updated Verified No Known Drug Allergies 07/19/18 No Physical Exam: PE: Constitutional: Well developed, well nourished, no acute distress, non-toxic appearance. [] HENT: Normocephalic, atraumatic, bilateral external ears normal, oropharynx moist, no oral exudates, nose normal. [] Eyes: PERRL, EOMI, conjunctiva normal, no discharge. Sclera are clear, anicteric, no conjunctival pallor. Neck: Normal range of motion, no tenderness, supple, no stridor. No JVD. Trachea midline. Cardiovascular: Irregularly irregular, rate controlled atrial fibrillation. +2 posterior tibial and radial pulses bilaterally. Lungs & Thorax: Bilateral breath sounds clear to auscultation [] Abdomen: Abdomen is obese, soft, nondistended, normal bowel sounds. No tenderness to palpation. No CVA tenderness. No flank or abdominal ecchymoses. No palpable pulsatile mass. Skin: Warm, dry, no erythema, no rash. [] Back: No tenderness, no CVA tenderness. [] Extremities: No tenderness, no cyanosis, no clubbing, ROM intact, no edema. No calf tenderness. Neurologic: Alert and oriented X 3, normal motor function, normal sensory function, no focal deficits noted. [] Psychologic: Affect normal, judgement normal, mood normal. [] Current Patient Data: Vital Signs: Vital Signs Date Time Temp Pulse Resp B/P (MAP) Pulse Ox O2 Delivery O2 Flow Rate FiO2 02/13/21 21:18 77 136/83 EKG: EKG: EKG is interpreted at 2107 Rhythm is irregularly irregular, atrial fibrillation Rate is 80 bpm RBBB [place] is normal No STEMI Radiology/Procedures: Radiology/Procedures: IMAGING REPORT Signed PATIENT: ADAM FUNEZ DACCOUNT: [id number] : 1945 LOCATION: ER AGE: 75 SEX: M EXAM STATUS: REG ER ORD. PHYSICIAN: MARYJANE OKEEFE DO REASON: abdominal pain, gross hematuria, OMNI 300 75 ML IV PROCEDURE: CT ABD PELV W/ IV CONTRST ONLY CT ABDOMEN+PELVIS W History: Abdominal pain, gross hematuria. Comparison: None. Technique: CT abdomen and pelvis with intravenous contrast. Findings: The lung bases are clear. Partially visualized pacemaker leads. Heavy aortic annular calcification and coronary artery calcification. Left hepatic lobe 1.6 cm cyst and additional similar-appearing 0.6 cm hypodensity too small to characterize, likely cyst. The gallbladder, pancreas and adrenal glands are unremarkable. Punctate calcifications throughout the spleen consistent with granulomatous disease. Multiple bilateral renal cysts. No hydronephrosis or nephrolithiasis. Bladder is mildly decompressed with no focal wall abnormality. Multiple fiducials within the prostate gland. The stomach is decompressed. The small bowel is unremarkable. The colon is within normal limits. There is a homogeneous ovoid soft tissue mass in the right pelvic region measuring 5.7 x 5.3 x 7.8 cm. The adjacent tissues or tracking towards the right inguinal canal which has a moderate sized fat-containing hernia. Qdrhm-[id number] left inguinal hernia containing peritoneal fat. Small fat-containing umbilical hernia. Multilevel degenerative changes of the spine. Advanced degenerative changes of bilateral hips. Impression: 1. Ovoid homogeneous right pelvic soft tissue mass measuring up to 7.8 cm concerning for malignancy. This may represent primary or metastatic disease within an enlarged lymph node. Possibly malignancy within the undescended testicle given proximity to the inguinal canal, correlate with history of undescended testis. Tissue sampling is recommended. This would be a candidate for percutaneous sampling by IR. 2. Bilateral renal cysts. No renal masses, hydronephrosis or nephrolithiasis. Decompressed bladder without focal wall abnormality. Suspect hematuria related to prostate which demonstrates postprocedural changes. 3. Bilateral inguinal and umbilical hernia. 4. Cardiomegaly with heavy coronary and aortic annular calcifications. ------ Exposure: One or more of the following individualized dose reduction techniques were utilized for this examination: 1. Automated exposure control 2. Adjustment of the mA and/or kV according to patient size 3. Use of iterative reconstruction technique. Electronically signed by: Kalin Melendez MD (02/14/2021 12:05 AM) [facility] DICTATED and SIGNED BY: KALIN MELENDEZ MD DATE: 02/13/[id number] 0 IMAGING REPORT Signed PATIENT: ADAM FUNEZ DACCOUNT: [id number] : 1945 LOCATION: ER AGE: 75 SEX: M EXAM STATUS: REG ER ORD. PHYSICIAN: MARYJANE OKEEFE DO REASON: chest pain PROCEDURE: PORTABLE CHEST 1V EXAMINATION: XR CHEST 1V CLINICAL HISTORY: Chest pain EXAM DATE/TIME: 02/13/2021 8:39 PM COMPARISON: 07/20/1999 FINDINGS: Lines, Tubes, and Devices: Left-sided dual-chamber cardiac pacemaker. Cardiomediastinal Silhouette: Prominent cardiac silhouette and aortic atherosclerotic calcification, similar to prior study. Lungs and Pleura: No evidence of focal airspace consolidation or pleural effusion. Pulmonary vasculature unremarkable. Bones and Soft Tissues: Degenerative changes in the thoracic spine. Median sternotomy wires. IMPRESSION: No evidence of acute cardiopulmonary abnormality. Electronically signed by: Gm Moncada DO (02/13/2021 9:38 PM) [facility] DICTATED and SIGNED BY: GM MONCADA DO DATE: 02/13/[id number] 0 Course & Med Decision Making: Course & Med Decision Making Pertinent Labs and Imaging studies reviewed. (See chart for details) Patient is given another sublingual nitroglycerin. He reports that this helped minimally, he was given Nitropaste. He is given morphine. The patient reports that his pain is not severe, though it is essentially unchanged, and he declines any further medication for it at this time. His blood pressure is stable. He is resting comfortably, manifesting no evidence of distress. He was able to urinate several times, with continued gross hematuria. Hematuria, pyuria and bacteria are noted on UA. IV Rocephin is empirically given for treatment of cystitis/urinary tract infection. CT of the abdomen pelvis demonstrates large ovoid right pelvic mass. The patient has bilateral descended testes. He does report that over 12 years ago, at an outside hospital, [place] of state, while in another [facility] system, he was told that he did have some sort of right- sided abdominal mass, and sounds like from his description he had fine-needle aspirate of contents, and reportedly the results were negative. He never followed up for any this. He did not mention any this during the initial H&P. He has not had any follow-up in over 12 years. His current physicians are apparently unaware of this. There are no urology services here at this hospital. The patient has reportedly seen [facility] many times for chest pain issues, which he now admits has been told is related to chest wall pain or musculoskeletal pain. Also, he has seen urology there several times. He is comfortable transfer to that facility for further evaluation. He may require cystoscopy. In addition, he will likely require IR services and surgery services for further evaluation of this pelvic mass. I spoke with [facility] transfer team, discussed all of the findings, and the patient is u ltimately excepted for admission there by Dr. Cooper at 0130. I requested that images be clouded so that they may view them there. Idalmis Disclaimer: Idalmis Disclaimer: This electronic medical record was generated, in whole or in part, using a voice recognition dictation system. Departure Departure Impression: Primary Impression: Gross hematuria Additional Impressions: Urinary tract infection Qualified Codes: N30.01 - Acute cystitis with hematuria Pelvic mass Chest pain Qualified Codes: R07.9 - Chest pain, unspecified Chronic atrial fibrillation Anticoagulated on Coumadin Disposition: 02 SHORT TERM HOSPITAL Condition: GUARDED Referrals: NO PCP (PCP) MARYJANE OKEEFE DO Feb 13, 2021 21:20
[2021-02-13 21:21] LABS: RBC,URINE TNTC /HPF (0-2)
[2021-02-13 21:25] LABS: BACTERIA,URINE FEW /HPF (0-FEW); WBC,URINE 20-40 /HPF (0-4)
[2021-02-13 21:33] LABS: AMPHETAMINE/METHAMPHETAMINE NEG (NEG); BARBITURATES NEG (NEG); BENZODIAZEPINES NEG (NEG); CANNABINOIDS NEG (NEG); COCAINE NEG (NEG); METHADONE NEG (NEG); OPIATES NEG (NEG); PHENCYCLIDINE NEG (NEG)
--- NOTE | 2021-02-13 21:40 | RAD ---
EXAMINATION: XR CHEST 1V CLINICAL HISTORY: Chest pain EXAM DATE/TIME: 02/13/2021 8:39 PM COMPARISON: 07/20/1999 FINDINGS: Lines, Tubes, and Devices: Left-sided dual-chamber cardiac pacemaker. Cardiomediastinal Silhouette: Prominent cardiac silhouette and aortic atherosclerotic calcification, similar to prior study. Lungs and Pleura: No evidence of focal airspace consolidation or pleural effusion. Pulmonary vasculat ure unremarkable. Bones and Soft Tissues: Degenerative changes in the thoracic spine. Median sternotomy wires. IMPRESSION: No evidence of acute cardiopulmonary abnormality. Electronically signed by: Gm Bender DO (02/13/2021 9:38 PM) [facility]
[2021-02-13] MEDS ORDERED: NITROGLYCERIN OINT 1 GM PACKET. TP ONE (21:45)
[2021-02-13] MEDS ORDERED: MORPHINE SULFATE 4 MG/ML INJ. IVP ONE (21:45)
[2021-02-13 21:49] LABS: BASO # 0.1 x10^3/uL (0.0-0.2); BASO % 1 % (0-3); EOS # 0.3 x10^3/uL (0.0-0.7); EOS % 4 % (0-3); HEMOGLOBIN 14.1 g/dL (13.0-17.5); LYMPH # 1.4 x10^3/uL (1.0-4.8); LYMPH % 20 % (24-48); MEAN CORPUSCULAR HEMOGLOBIN 32 pg (25-35); MEAN CORPUSCULAR HGB CONC 34 g/dL (31-37); MEAN CORPUSCULAR VOLUME 93 fL (79-100); MONO # 0.6 x10^3/uL (0.0-1.1); MONO % 9 % (0-9); NEUT # 4.7 x10^3/uL (1.8-7.7); NEUT % 66 % (31-73); PLATELET COUNT 242 x10^3/uL (140-400); RED BLOOD COUNT 4.44 x10^6/uL (4.30-5.70); WHITE BLOOD COUNT 7.1 x10^3/uL (4.0-11.0)
[2021-02-13 22:01] LABS: PROTHROMBIN TIME PATIENT 23.5 SEC (11.7-14.0)
[2021-02-13 22:04] LABS: CALCIUM 8.5 mg/dL (8.5-10.1); CREATININE 0.7 mg/dL (0.7-1.3); GFR 109.4; POTASSIUM 4.4 mmol/L (3.5-5.1)
[2021-02-13 22:10] LABS: ALBUMIN 3.7 g/dL (3.4-5.0); ALBUMIN/GLOBULIN RATIO 1.2 (1.0-1.7); MAGNESIUM 2.2 mg/dL (1.8-2.4); TOTAL BILIRUBIN 0.5 mg/dL (0.2-1.0); TOTAL PROTEIN 6.8 g/dL (6.4-8.2)
[2021-02-13] MEDS ORDERED: cefTRIAXone IV Push 1 GM VIAL. IVP ONE (22:45)
[2021-02-13] MEDS ORDERED: IOHEXOL 300 MG/ML 100ML VIAL. IV ONE (22:45)
[2021-02-13] MEDS ORDERED: CONTRAST GIVEN. MC PRN (22:45)
--- NOTE | 2021-02-14 00:07 | RAD ---
CT ABDOMEN+PELVIS W History: Abdominal pain, gross hematuria. Comparison: None. Technique: CT abdomen and pelvis with intravenous contrast. Findings: The lung bases are clear. Partially visualized pacemaker leads. Heavy aortic annular calcification an d coronary artery calcification. Left hepatic lobe 1.6 cm cyst and additional similar-appearing 0.6 cm hypodensity too small to charac terize, likely cyst. The gallbladder, pancreas and adrenal glands are unremarkable. Punctate calcific ations throughout the spleen consistent with granulomatous disease. Multiple bilateral renal cysts. N o hydronephrosis or nephrolithiasis. Bladder is mildly decompressed with no focal wall abnormality. M ultiple fiducials within the prostate gland. The stomach is decompressed. The small bowel is unremarkable. The colon is within normal limits. Ther e is a homogeneous ovoid soft tissue mass in the right pelvic region measuring 5.7 x 5.3 x 7.8 cm. Th e adjacent tissues or tracking towards the right inguinal canal which has a moderate sized fat-contai cornelius hernia. Nilai-yk-fgkpzsbo left inguinal hernia containing peritoneal fat. Small fat-containing u mbilical hernia. Multilevel degenerative changes of the spine. Advanced degenerative changes of bilat eral hips. Impression: 1. Ovoid homogeneous right pelvic soft tissue mass measuring up to 7.8 cm concerning for malignancy. This may represent primary or metastatic disease within an enlarged lymph node. Possibly malignancy within the undescended testicle given proximity to the inguinal canal, correlate with history of unde scended testis. Tissue sampling is recommended. This would be a candidate for percutaneous sampling b y IR. 2. Bilateral renal cysts. No renal masses, hydronephrosis or nephrolithiasis. Decompressed bladder w ithout focal wall abnormality. Suspect hematuria related to prostate which demonstrates postprocedura l changes. 3. Bilateral inguinal and umbilical hernia. 4. Cardiomegaly with heavy coronary and aortic annular calcifications. ------ Exposure: One or more of the following individualized dose reduction techniques were utilized for thi s examination: 1. Automated exposure control 2. Adjustment of the mA and/or kV according to patient size 3. Use of iterative reconstruction technique. Electronically signed by: Kalin Chacon MD (02/14/2021 12:05 AM) [facility]
[2021-02-14 02:36] VITALS: BP 133/89
--- NOTE | 2021-02-14 05:13 | EKG ---
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
== END 2021-02-14 03:00 | disposition short-term general hospital (02) ==
LOC: EEVIPCON 20:58 → ER 20:58
DX: N30.01 Acute cystitis with hematuria (principal); Z20.822 Contact with and (suspected) exposure to COVID-19; R07.89 Other chest pain; I48.20 Chronic atrial fibrillation, unspecified; Z79.01 Long term (current) use of anticoagulants; J44.9 Chronic obstructive pulmonary disease, unspecified; I10 Essential (primary) hypertension; Z95.0 Presence of cardiac pacemaker; Z87.891 Personal history of nicotine dependence
CPT/HCPCS: 36415; 71045; 74177; 80053; 80307; 81001; 83690; 83735; 83880; 84484; 85025; 85610; 85730; 87086; 87426; 93005; 96374; 96375; 99285; J0696; J2270; Q9967; U0003; U0005